=== PATIENT | female | born 1975 | race Caucasian/White ===

== ENCOUNTER → 2023-07-09 13:36 | Outpatient (REF) | payer BC, SELFPAY | LOC: WDC 13:36 | PROVIDERS: ATTENDING PHYSICIAN Obstetrics & Gynecology; FAMILY PHYSICIAN Family Medicine | DX: Z12.31 Encounter for screening mammogram for malignant neoplasm of breast (principal) | CPT/HCPCS: 77063; 77067 ==

== ENCOUNTER → 2024-07-25 13:22 | Outpatient (REF) | payer BC, SELFPAY | LOC: WDC 13:22 | PROVIDERS: ATTENDING PHYSICIAN Obstetrics & Gynecology; FAMILY PHYSICIAN Family Medicine | DX: Z12.31 Encounter for screening mammogram for malignant neoplasm of breast (principal) | CPT/HCPCS: 77063; 77067 ==

== ENCOUNTER → 2024-08-23 07:53 | Outpatient (REF) | payer BC, SELFPAY | LOC: HWRAD 07:53 | PROVIDERS: ATTENDING PHYSICIAN Internal Medicine | DX: N93.9 Abnormal uterine and vaginal bleeding, unspecified (principal) | CPT/HCPCS: 76830; 76856 ==

== ENCOUNTER 2024-09-27 18:55 | Emergency (ER) | payer BC, SELFPAY ==
[2024-09-27 19:05] VITALS: BP 130/79
[2024-09-27] MEDS: BENADRYL 25 MG IV (21:44)
[2024-09-27] MEDS: DECADRON 10 MG IV (21:45)
[2024-09-27] MEDS: NSS 500 IV (21:45)
[2024-09-27] MEDS: PEPCID 20 MG IV (21:45)
[2024-09-27 22:47] VITALS: BP 91/52
--- NOTE | 2024-09-27 22:54 | ED.GENMED ---
History of Present Illness
General
Chief Complaint: Skin Problem
Source: patient
Exam Limitations: none
Time Seen by Provider: 09/27/24 21:05
Nursing documentation reviewed up to this point in time: agreed with
History of Present Illness
History of Present Illness:
Patient presents to ED secondary to worsening itchy rash, after taking Bactrim for 2 weeks. Denies lip swelling, tongue swelling, or throat swelling sensation. Denies shortness of breath. Denies nausea or vomiting. Denies previous history of
similar symptoms. [place], where she was prescribed prednisone 2 days ago, without improving symptoms. Denies fever or chills.
Past History
Past History
ED Past Medical History: None
ED Past Surgical History:
Social History
Tobacco: Non-smoker
Alcohol: Occasional
Drug: None
Personal:
Living: with family
Employment: Employed
Family History
Family History: Other (Noncontributory)
Review of Systems
Review of Systems
Allergies reviewed?: Yes
All Other Systems: ROS reviewed and negative except as documented in HPI and ROS
Constitutional: Reports no symptoms
EENT: Reports no symptoms
Respiratory: Reports no symptoms; Denies trouble breathing
Cardiac: Reports no symptoms
ABD/GI: Reports no symptoms; Denies nausea or vomiting
Musculoskeletal: Reports no symptoms
Skin: Reports itching and rash
Neurological: Reports no symptoms; Denies dizzy or headache
Phy Exam
Physical Exam
Physical Exam:
Physical Exam
General: no apparent distress, not acutely ill. afebrile
Head: nc/at. eomi
Neck: supple. no meningeal signs. normal posterior pharynx.
Heart: s1/s2 regular rate and rhythm
Lungs: no acute respiratory distress. clear bilaterally
Abdomen: normal bowel sounds. not tender.
Neuro: alert and oriented x 3. no focal neurological deficits
Skin: macular rash noted over UE/LE/abdomen/back, sparing face
Psychiatric: well kept. interactive and cooperative
Extremities: no edema. no calf tenderness.
Course
Orders/Labs/Results
Orders:
Orders
09/27/24 21:31
0.9% Sodium Chloride 500 ml [Nss] 500 ml IV BOLUS
Dexamethasone Sod Phosphate [Decadron] 10 mg IV NOW STA
Diphenhydramine [Benadryl] 25 mg IV NOW STA
Famotidine [Pepcid] 20 mg IV NOW STA
Vital Signs
Initial and Last Documented VS:
Initial Vital Signs
Temp Pulse Resp BP Pulse Ox
97.6 F 71 16 130/79 100
09/27/24 19:05 09/27/24 19:05 09/27/24 19:05 09/27/24 19:05 09/27/24 19:05
Last Documented Vital Signs
Temp Pulse Resp BP Pulse Ox
97.6 F 57 18 91/52 100
09/27/24 19:05 09/27/24 22:47 09/27/24 22:47 09/27/24 22:47 09/27/24 22:55
MDM/Problems Addressed
MDM/Problems Addressed:
History and exam consistent with likely allergic reaction to Bactrim. Patient treated symptomatically with IV Decadron and Benadryl, along with IV fluids, with mild improvement in symptoms. Patient otherwise remains afebrile, hemodynamically
stable, and without any acute respiratory distress. As such, decision made to discharge patient home with taper dose of prednisone, along with use of Benadryl for symptomatic relief, as well as PCP follow-up. Patient advised to return to ED with
worsening symptoms.
*Pulse Oximetry
SaO2: 100
Oxygen Mode of Delivery: Room air
Patient hypoxic: no
*Critical Care Note
Total Time (30-74mins, 75-104mins- exclusive of procedures): Not Applicable
ED Attending Note
-
Portions of this chart may have been created with voice recognition software.� Occasional wrong word or��sound alike� substitutions may have occurred due to the inherent limitations of voice recognition software.
Discharge Plan
Departure
Patient Disposition: Home (Routine Discharge)
Date of Disposition: 09/27/24
Time of Disposition: 22:55
Patient with high blood pressure during this ER visit?: Yes
Discharge Problem:
Allergic reaction
Instructions: Allergic reaction - ED discharge instructions
Prescriptions:
New
prednisone 10 mg tablet
10 mg PO DAILY Qty: 30 0RF
Rx Instructions:
Day 1-2: 50mg po daily
Day 3-4: 40mg po daily
Day 5-6: 30mg po daily
Day 7-8: 20mg po daily
Day 9-10: 10mg po daily
No Action
multivitamin [Multi-Day] 1 EACH tablet
1 ea PO Daily
calcium carbonate 500 MG tablet,chewable
500 mg PO Daily
L.acidoph,paracasei,B.animalis 1 EACH capsule
1 ea PO Daily
ibuprofen 600 MG tablet
600 mg PO Q6 Qty: 20 0RF
amoxicillin-pot clavulanate 875-125 mg tablet
1 tab PO BID Qty: 14 0RF
oxycodone 5 mg tablet
5 mg PO Q4H PRN (Reason: Pain) Qty: 20 0RF
ondansetron 8 mg tablet,disintegrating
8 mg PO TID PRN (Reason: nausea and vomiting) Qty: 30 0RF
Referrals:
Armida Ye MD [Family Provider, Internal Medicine]
Activity Restrictions/Additional Instructions:
As discussed, please follow-up with your primary care physician for reevaluation, or return to ED with worsening symptoms. Your prescription has been sent electronically to [facility]
Interventions
Interventions:
*Risk Screen - Suicide Last Done: 09/27/24 19:05
*General Assessment Last Done: 09/27/24 22:23
*Neglect/Abuse Screening Last Done: 09/27/24 19:05
*ED- Fall Risk Assessment Last Done: 09/27/24 22:24
*Nursing Disposition Last Done: 09/27/24 23:08
ED-Skin Assessment Last Done: 09/27/24 21:03
Discharge Date and Time
Discharge Date/Time: 09/27/24 23:08
Print Language: KINYARWANDA
== END 2024-09-27 23:08 | disposition home or self-care (01) ==
LOC: EMR 18:55
PROVIDERS: EMERGENCY PHYSICIAN Emergency Medicine; FAMILY PHYSICIAN Internal Medicine
DX: T78.40XA Allergy, unspecified, initial encounter (principal); Y92.9 Unspecified place or not applicable
CPT/HCPCS: 99282; 96374; 96375; 96361

== ENCOUNTER 2024-10-01 11:36 | Inpatient (IN) | payer BC, SELFPAY ==
[2024-10-01] VITALS (12 sets, daily range): BP systolic 107–144; BP diastolic 54–83; BMI 23.8; BMI 24.0
--- NOTE | 2024-10-01 07:25 | ED.GENMED ---
History of Present Illness
<Radha Montes De Oca PA-C - Last Filed: 10/01/24 09:43>
General
Chief Complaint: Allergic Reaction
Source: patient and records
Exam Limitations: none
Time Seen by Provider: 10/01/24 07:10
History of Present Illness
History of Present Illness:
49yoF with a history of seasonal allergies and GERD presenting for evaluation of an allergic reaction. Patient was prescribed a 3 week course of Bactrim for a resistant sinus infection by ENT earlier this month. About 2 weeks ago, she started to
develop a mild rash which she did not think much of. She was at the beach last week and started to notice a worsening rash 8 days ago with severe itching. Patient stopped taking Bactrim with 1-2 days left of her treatment. She went to urgent care
1 week ago and was started on prednisone. She had no improvement and was seen in the ED on 09/27/24. Patient received IV Decadron, Benadryl, and Pepcid while in the ED and was discharged on a prednisone taper. She was feeling much better for the
first 2 days. Her rash recurred yesterday and she is now experiencing severe itching again. She woke up this morning with facial redness and some lip swelling so came to the ED. Her rash is worse on sun exposed areas. She denies any fevers,
vomiting, diarrhea, shortness of breath, genital involvement.
Past History
<Radha Montes De Oca PA-C - Last Filed: 10/01/24 09:43>
Past History
ED Past Medical History: None
ED Past Surgical History:
Social History
Tobacco: Non-smoker
Alcohol: Occasional
Drug: None
Personal:
Living: with family
Employment: Employed
Family History
Family History: Other (Noncontributory)
Phy Exam
<Radha Montes De Oca PA-C - Last Filed: 10/01/24 09:43>
General Physical Exam
General Presentation: well appearing and no apparent distress
General Skin: warm and dry
General Habitus: normal
General Mental: alert
ENT Exam
ENT Exam: pharynx normal, normocephalic and other (Mild lip swelling noted without crusting or blisters. No oral lesions noted. +Facial flushing.)
Eye Exam
Eye Exam: conjunctiva normal
Pulmonary Exam
Pulmonary Exam: lungs clear, no respiratory distress, no rales, no crackles, no rhonchi and no wheezing
Neurological Exam
Neurological Exam: alert
Eliana Coma Scale
Eye Opening: Spontaneous
Verbal Response: Oriented
Motor Response: Obeys Commands
GCS Total Score: 15
Skin Exam
Skin Exam: warm/dry, erythema and other (Morbilliform rash noted to exposed skin of upper/lower extremities and trunk. No skin sloughing or desquamation. )
Psychiatric Exam
Psychiatric Exam: normal mood/affect
<José Urias MD - Last Filed: 10/01/24 08:07>
Eliana Coma Scale
GCS Total Score: 15
Course
<Radha Montes De Oca PA-C - Last Filed: 10/01/24 09:43>
Orders/Labs/Results
Orders:
Orders
10/01/24 07:24
0.9% Sodium Chloride 1000 ml [Nss] 1,000 ml IV BOLUS
Diphenhydramine [Benadryl] 25 mg IV NOW STA
10/01/24 07:39
Complete Blood Count/With Diff Urgent
Comprehensive Metabolic Panel Urgent
HCG, Serum Qualitative Screen Urgent
10/01/24 08:03
Dexamethasone Sod Phosphate [Decadron] 8 mg IV NOW STA
10/01/24 08:37
US Abdomen Complete/Upper Urgent
Comment:
Reason For Exam: transaminitis
10/01/24 08:42
Add On- LAB Urgent
Tests Added?: qualitative HCG
10/01/24 09:02
Prothrombin Time Urgent
Abnormal Lab Results
10/01/24
07:39
Hct 35.0 L %
(37.0-47.0)
Abs Immat Gran (auto) 0.1 H 10^3/uL
(0-0.05)
Absolute Monos (auto) 0.7 H 10^3/uL
(0.1-0.6)
Immature Gran % 0.7 H %
(0-0.5)
Eosinophils % 7.5 H %
(0-6)
Chloride 108 H mmol/L
(98-107)
Glucose 100 H mg/dl
(70-99)
AST 367 H U/L
(14-36)
ALT 608 H* U/L
(0-35)
10/01/24 07:39
10/01/24 07:39
Vital Signs
Initial and Last Documented VS:
Initial Vital Signs
Temp Pulse Resp BP Pulse Ox
98.9 F 94 20 144/83 100
10/01/24 07:05 10/01/24 07:05 10/01/24 07:05 10/01/24 07:05 10/01/24 07:05
Last Documented Vital Signs
Temp Pulse Resp BP Pulse Ox
98.9 F 84 16 127/78 99
10/01/24 07:05 10/01/24 08:30 10/01/24 08:30 10/01/24 08:30 10/01/24 08:30
<José Urias MD - Last Filed: 10/01/24 08:07>
Orders/Labs/Results
Orders:
Orders
10/01/24 07:24
0.9% Sodium Chloride 1000 ml [Nss] 1,000 ml IV BOLUS
Diphenhydramine [Benadryl] 25 mg IV NOW STA
10/01/24 07:39
Complete Blood Count/With Diff Urgent
Comprehensive Metabolic Panel Urgent
HCG, Serum Qualitative Screen Urgent
10/01/24 08:03
Dexamethasone Sod Phosphate [Decadron] 8 mg IV NOW STA
10/01/24 08:37
US Abdomen Complete/Upper Urgent
Comment:
Reason For Exam: transaminitis
10/01/24 08:42
Add On- LAB Urgent
Tests Added?: qualitative HCG
10/01/24 09:02
Prothrombin Time Urgent
Abnormal Lab Results
10/01/24
07:39
Hct 35.0 L %
(37.0-47.0)
Abs Immat Gran (auto) 0.1 H 10^3/uL
(0-0.05)
Absolute Monos (auto) 0.7 H 10^3/uL
(0.1-0.6)
Immature Gran % 0.7 H %
(0-0.5)
Eosinophils % 7.5 H %
(0-6)
Chloride 108 H mmol/L
(98-107)
Glucose 100 H mg/dl
(70-99)
AST 367 H U/L
(14-36)
ALT 608 H* U/L
(0-35)
10/01/24 07:39
10/01/24 07:39
Vital Signs
Initial and Last Documented VS:
Initial Vital Signs
Temp Pulse Resp BP Pulse Ox
98.9 F 94 20 144/83 100
10/01/24 07:05 10/01/24 07:05 10/01/24 07:05 10/01/24 07:05 10/01/24 07:05
Last Documented Vital Signs
Temp Pulse Resp BP Pulse Ox
98.9 F 84 16 127/78 99
10/01/24 07:05 10/01/24 08:30 10/01/24 08:30 10/01/24 08:30 10/01/24 08:30
<Radha Montes De Oca PA-C - Last Filed: 10/01/24 09:43>
MDM/Problems Addressed
Differential Diagnosis Includes:
49yoF here with an allergic reaction. C/o itchy rash. Ongoing x 2 weeks. Recently stopped Bactrim which she was taking for almost 3 weeks. Currently on prednisone taper. Now with worsening rash and facial redness. VSS. She is well appearing and
non-toxic. There is facial flushing and mild lip swelling without blisters. Morbilliform rash to extremities without skin sloughing. Conjunctiva clear. Differential diagnosis includes but is not limited to: delayed hypersensitivity reaction, DRESS
syndrome, no clinical evidence of SJS
Initial ED plan: Check CBC and CMP. IV Benadryl, Decadron, and fluid bolus.
<Radha Montes De Oca PA-C - Last Filed: 10/01/24 09:43>
*Pulse Oximetry
SaO2: 100
Oxygen Mode of Delivery: Room air
Patient hypoxic: no (99%)
*Critical Care Note
Total Time (30-74mins, 75-104mins- exclusive of procedures): Not Applicable
<Radha Montes De Oca PA-C - Last Filed: 10/01/24 09:43>
Update Note
Update Note:
Labs show an eosinophilia of 7.5% as well as a transaminitis with AST of 367 and ALT 608. Renal function and platelet count normal. Patient meeting criteria for DRESS syndrome. I discussed case with Dr. Contreras, prepleater, as patient was seen by
azul JAIMES at his office two days ago. Dr. Contreras agrees with diagnosis of DRESS syndrome and recommends hospitalization. Patient admitted to the hospitalist service for further management.
ED Attending Note
<Radha Montes De Oca PA-C - Last Filed: 10/01/24 09:43>
-
Portions of this chart may have been created with voice recognition software.� Occasional wrong word or��sound alike� substitutions may have occurred due to the inherent limitations of voice recognition software.
<José Urias MD - Last Filed: 10/01/24 08:07>
ED Attending Note
Patient seen and examined by attending physician: Yes
I performed the substantive portion of visit, reviewed & personally made and approve the management plan that is documented in note by myself or TIFFANY.: Yes
ED Attending Note:
49-year-old female complaining of ongoing pruritic rash diffusely x 8 days. Patient had been on Bactrim for 2 weeks when the rash started. Continued 1/3-week of Bactrim. This was for sinus issues. Rash started on the arms is pruritic. Worse in
sun exposed areas. She had been on a course of prednisone. Seen here 5 days ago with Decadron and a steroid taper. Took 40 mg of prednisone yesterday. She feels the Decadron did help days ago. She noted some lip swelling and redness to her
cheeks today. No swallowing issues breathing issues chest pain shortness of breath. No unusual ulcerations to any mucous membranes including her mouth vaginal area eyes etc.
GENERAL: Alert and oriented in no apparent distress
EYE: Orbits normal. No conjunctival injection or mucous membrane ulcerations
ENT: Pharynx without erythema. No intraoral ulcerations
CARDIAC: Regular rate and rhythm without any obvious murmurs.
LUNGS: Clear breath sounds,normal
ABDOMEN: Soft, without focal tenderness or distention
NEUROLOGICAL: Alert and oriented , grossly non-focal
SKIN: Warm and dry, macular papular rash diffusely on the extremities abdomen and chest although relatively mild. Increased erythema to the proximal extremities. Erythema to the cheeks. Clear somewhat demarcated related to bathing suit although
it is in the areas under the bathing suit. No petechia or purpura.
MUSCULOSKELETAL: No edema,no deformity.Good color
PSYCH: Normal and appropriate interaction.
Impression drug reaction. Waxing and waning symptoms. Some worse facial symptoms this morning although no airway issues. Not describing respiratory or cardiac issues. Not toxic or septic appearing. No ulcerations. Considered Pimentel-El
syndrome but not consistent with exam. Dress syndrome. Workup in progress. Also tried to contact her prepleater. She clearly felt she responded well to the Decadron. Although unlikely to add significant benefit in extra dose is reasonable.
Discharge Plan
Departure
Patient Disposition: Admit
Date of Disposition: 10/01/24
Time of Disposition: 08:41
Presentation/result/management discussed w/ accepting MD/DO: Hospitalist
Discharge Problem:
DRESS syndrome
Prescriptions:
No Action
famotidine [Pepcid] 40 mg Tablet
40 mg PO DAILY
prednisone 10 mg tablet
10 mg PO DAILY
Rx Instructions:
Day 1-2: 50mg po daily
Day 3-4: 40mg po daily
Day 5-6: 30mg po daily
Day 7-8: 20mg po daily
Day 9-10: 10mg po daily
Referrals:
UNKNOWN - PT DOES,NOT KNOW [Family Provider]
Interventions
Interventions:
*Risk Screen - Suicide Last Done: 10/01/24 07:11
*General Assessment Last Done: 10/01/24 07:12
*Neglect/Abuse Screening Last Done: 10/01/24 07:11
*ED- Fall Risk Assessment Last Done: 10/01/24 07:12
*ED COVID-19 Vaccine History Last Done: 10/01/24 07:12
ED- Cardiac Assessment Last Done: 10/01/24 07:17
ED- Pulmonary Assessment Last Done: 10/01/24 07:17
ED-Skin Assessment Last Done: 10/01/24 07:17
Discharge Date and Time
Print Language: THAI
[2024-10-01] MEDS: BENADRYL 25 MG IV ×4 (07:42→23:45)
[2024-10-01] MEDS: NSS 1000 IV (07:42)
[2024-10-01 07:45] LABS: Hematocrit 35.0 % (37.0-47.0); Hemoglobin 12.2 g/dL (12.0-16.0); Mean Corp Hgb Conc. 34.9 g/dL (33.0-37.0); Mean Corpuscular Volume 83.1 fL (81.0-99.0); Nucleated Red Blood Cells % 0 %; Platelet Count 249 10^3/uL (130-400); Red Cell Dist. Width 13.4 % (11.5-14.5)
[2024-10-01] MEDS: DECADRON 8 MG IV ×4 (08:10→23:46)
[2024-10-01 08:19] LABS: ALT (SGPT) 608 U/L (0-35); AST (SGOT) 367 U/L (14-36); Albumin 3.9 g/dl (3.5-5.0); Alkaline Phosphatase 92 U/L (38-126); Blood Urea Nitrogen 8 mg/dl (7-17); Calcium 8.4 mg/dl (8.4-10.2); Carbon Dioxide 25 mmol/L (22-30); Chloride 108 mmol/L (98-107); Estimated Creatinine Clearance 69 ml/min; Glucose 100 mg/dl (70-99); Potassium 3.5 mmol/L (3.5-5.1); Sodium 140 mmol/L (135-145); Total Protein 6.5 g/dl (6.3-8.2); eGFR > 60.00
--- NOTE | 2024-10-01 08:27 | EDRN ---
Provider aware of critical value lab
[2024-10-01 09:13] LABS: HCG, Serum Qualitative Screen Negative
[2024-10-01 09:20] LABS: INR 0.95; PT 13.0 Sec (11.4-14.6)
--- NOTE | 2024-10-01 10:02 | HPS.HSE ---
Addendum entered and electronically signed by Jelena Espinoza MD 10/01/24 22:19:
Lower ext maculopapular rash
RUE Rash
LUE rash
Face neck rash
Original Note:
Family Physician
-
Family Physician: NOT KNOW UNKNOWN - PT DOES
Chief Complaint
-
Facial Rash
History of Present Illness
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 Patient was prescribed a 3 wk course of Bactrim for a resistant sinus infection by ENT earlier this
month, she was also traveling in [place] and [place] for the first 2 weeks (no hiking, no hostels). About 2 weeks ago, she started to develop a mild rash arms legs which she did not think much of- notes a hx of mild photosensitivity rxn to sun
exposure that usually resolves spontaneously when away from the sun. She was at the beach last week and started to notice a worsening rash with severe itching. Suspected drug rxn, patient stopped taking Bactrim with 1-2 days left of her treatment.
She went to urgent care and was started on prednisone. She had no improvement and was seen in the ED on 09/27/24. Patient received IV Decadron, Benadryl, and Pepcid while in the ED, with improvement noted, and was discharged on a prednisone
taper. Reported feeling better first 2 days since discharge. Her rash recurred and itching worsen. She woke up in the morning with facial redness and some lip swelling prompting return to ED. Denies fever chills nausea vomiting diarrhea
constipation dysuria chest/abd pain palpitations SOB wheezing. VSS on room air. Labs concerning for LFT elevations
Medical History
Past Medical History
Past Medical History: Reports Other (as above)
Past Surgical History: Reports Other (as above)
Social History
Tobacco: Non-smoker
Alcohol: None
Drug: None
Personal:
Living: With Family
Employment: Employed
Family History
Family History: Not pertinent (reviewed)
Allergies / Home Medications
Allergies reflects when Allergies were last updated in [employer] [employer].
Home Medications with original date entered in [employer]
Allergy/Medication List:
Allergies
Allergy/AdvReac Type Severity Reaction Status Date / Time
bacitracin Allergy Itching Verified 10/01/24 07:08
sulfamethoxazole (From Allergy Rash Verified 10/01/24 07:08
Bactrim)
trimethoprim (From Bactrim) Allergy Rash Verified 10/01/24 07:08
Home Medications
famotidine 40 mg tablet (Pepcid) 40 mg PO DAILY 10/01/24
prednisone 10 mg tablet 10 mg PO DAILY 10/01/24
Review of Systems
-
A 12 point ROS was completed and negative except as noted: Yes
Constitutional: Reports Other (as below)
Physical Exam
Vital Signs
Vital Signs
Temp Pulse Resp BP Pulse Ox
98.9 F 85 16 115/75 100
10/01/24 07:05 10/01/24 09:45 10/01/24 09:45 10/01/24 09:45 10/01/24 09:45
Physical Exam
General: Other (as below)
Laboratory Results
-
10/01/24 07:39
10/01/24 07:39
Laboratory Results
PT 13.0 Sec (11.4-14.6) 10/01/24 09:02
INR 0.95 10/01/24 09:02
Total Bilirubin 0.7 mg/dl (0.2-1.3) 10/01/24 07:39
AST 367 U/L (14-36) H 10/01/24 07:39
ALT 608 U/L (0-35) H* 10/01/24 07:39
Alkaline Phosphatase 92 U/L (38-126) 10/01/24 07:39
Impression/Plan
-
ROS
General: Denies fever chills night sweats unexpected weight loss
Neuro: Denies seizure shaking loss of consciousness dizziness vertigo
Psych: denies depression hallucinations confusion manic episodes
Endocrine: Denies polyuria polydipsia polyphagia heat/cold intolerance
HEENT: Denies blindness visual disturbances epistaxis
Pulmonary: denies coughing hemoptysis sneezing sob dyspnea on exertion
Cardiovascular: denies chest pain palpitations leg swelling
Hematology: denies signs symptoms of anemia easy bruising/bleeding
Gastrointestinal: denies nausea vomiting diarrhea constipation hematemesis hematochezia melena
Genito-Urinary: denies retention incontinence dysuria
Musculoskeletal: denies joint pain weakness
Dermatology: Progressive rash itching involving face throat, chest, arms and legs, arms and legs.
Physical Exam
General: No pallor, cyanosis, or jaundice.
HEENT: Throat clear. PERRLA Normocephalic atraumatic
NECK: Supple. No JVD Carotid Bruits
RESPIRATORY: Lungs clear to auscultation. No crackles wheezes stridor
CVS: S1, S2 normal. RRR. No murmur, rub or gallop.
ABDOMEN: Soft, non-tender. No distension. BS+/normal.
EXTREMITIES: No peripheral cyanosis or edema.
Derm: Diffuse rash involving face, maculopapular rash neck chest arms and legs
DISABILITY HEARING OFFICER: AOx3. No focal deficits.
IMPRESSION:
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 Patient was prescribed a 3 wk course of Bactrim for a resistant sinus infection by ENT earlier this
month, she was also traveling in [place] for the first 2 weeks (no hiking, no hostels). About 2 weeks ago, she started to develop a mild rash arms legs which she did not think much of- notes a hx of mild photosensitivity rxn to sun
exposure that usually resolves spontaneously when away from the sun. She was at the beach last week and started to notice a worsening rash with severe itching. Suspected drug rxn, patient stopped taking Bactrim with 1-2 days left of her treatment.
She went to urgent care and was started on prednisone. She had no improvement and was seen in the ED on 09/27/24. Patient received IV Decadron, Benadryl, and Pepcid while in the ED, with improvement noted, and was discharged on a prednisone
taper. Reported feeling better first 2 days since discharge. Her rash recurred and itching worsen. She woke up in the morning with facial redness and some lip swelling prompting return to ED. Denies fever chills nausea vomiting diarrhea
constipation dysuria chest/abd pain palpitations SOB wheezing. VSS on room air. Labs concerning for LFT elevations
PLAN:
#Suspected DRESS secondary to Bactrim, eosinophil count 700
#Acute Liver injury 2/2 DRESS AST 367 ALT 608
IMU admit for closer monitoring concern progressive symptoms despite steroids Benadryl
Vital signs otherwise stable on room air
Received IV Decadron 8 mg and 25 mg Benadryl in ED
IV Decadron 4 mg every 6
IV Benadryl 25 mg every 6 with holding parameters for sedation
IV Pepcid 20 mg BID
Calamine Lotion prn itching
Daily CBC differential and CMP
Abd US appreciated no acute abn's, coag wnl
GI eval
ID eval possible alternative infection, hx travel
DVT ppx SCD
GI ppx Famotidine
Full Code
Discussed with patient and patient's Sen
I spent a total of 80 minutes with the patient or on the floor. More than 50% of this time involved counseling and coordination of care.
[2024-10-01] MEDS: PEPCID 20 MG IV ×2 (11:51→22:26)
--- NOTE | 2024-10-01 12:15 | CM ---
Met with patient and at bedside in ED
Pharmacy verified: [facility] @ [address] [facility]
Family Physician verified: Armida Ye MD @ [address] [place] [address] [address], [place] [address];
Patient lives w/ and 2 children ages 13 and 15; multilevel home; 1 step to enter; 12 steps between floors, powder room 1st floor; 2nd floor full bath has stall shower
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
No SNF or Home Health utilization history
will transport home
Plan: Discharge to home when medically stable; no needs anticipated
[2024-10-01 13:59] LABS: ALT (SGPT) 742 U/L (0-35); AST (SGOT) 474 U/L (14-36); Albumin 4.2 g/dl (3.5-5.0); Alkaline Phosphatase 111 U/L (38-126); Blood Urea Nitrogen 7 mg/dl (7-17); Calcium 8.8 mg/dl (8.4-10.2); Carbon Dioxide 25 mmol/L (22-30); Chloride 111 mmol/L (98-107); Estimated Creatinine Clearance 92 ml/min; Glucose 131 mg/dl (70-99); Potassium 4.1 mmol/L (3.5-5.1); Sodium 141 mmol/L (135-145); Total Protein 7.0 g/dl (6.3-8.2); eGFR > 60.00
--- NOTE | 2024-10-01 14:10 | CON.ID ---
Consultation
-
Date/Time Consultation Requested: 10/01/2024 1201
Date/Time Consultation Performed: 10/01/2024 1345
Requesting Provider: Dr. Espinoza
Performing Provider: Dr. Bee
Reason for Consultation: Rash
Chief Complaint / Past History
History of Present Illness
Kari Garcia is a 49-year-old female being evaluated at the request of Dr. Espinoza in regards to body rash. History is obtained from chart review, along with patient interview.
The patient has a significant past medical history only for GERD and rosacea. She reports that around she developed a sinus infection. She initially was on approximately 5 days of Augmentin without significant improvement, and then
subsequently switched to Levaquin, which also failed to give relief. Ultimately she saw ENT and was placed on a 3-week course of Bactrim. Approximately 2 weeks into her course of Bactrim she moved to [place] and was there for 2 days, at which point
in time she developed a slight rash on her arms. She has had other instances of mild rash on her arms but this time the rash was more pruritic and did not resolve. She subsequently traveled to [facility] where the rash progressed to include her legs
and abdomen. She was seen at an urgent care center there and prescribed prednisone which failed to improve the rash. She ultimately returned to the and came to the emergency room for further care. She was seen here on 09/27 and given Decadron
and discharged on prednisone. Earlier today, she noted an increase in the rash and presented back to the emergency room for further evaluation.
While traveling, she had no significant insect exposure. She recalls no bites.
Past History
Additional Past Medical History:
GERD
Hx diverticulitis
Hx rosacea
Additional Past Surgical History:
Basal cell ca
Allergy History:
bacitracin Allergy (Verified 10/01/24 07:08)
Itching
sulfamethoxazole (From Bactrim) Allergy (Verified 10/01/24 07:08)
Rash
trimethoprim (From Bactrim) Allergy (Verified 10/01/24 07:08)
Rash
Medications Reviewed: Yes
Current Antibiotics:
None
Social History
Tobacco: Non-Smoker
Alcohol: None
Drug: None
Personal:
Living: With Family
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
Family History
Family History: Not Pertinent
Review of Systems
Vital Signs
Temp Pulse Resp BP Pulse Ox
98.7 F 84 14 112/74 100
10/01/24 13:11 10/01/24 12:00 10/01/24 12:00 10/01/24 11:30 10/01/24 12:00
Physical Exam
Physical Exam
Constitutional: No Acute Distress, Comfortable and Non-toxic
Eyes: No Conjunctival Hemorrhage and Sclera Anicteric
Oral: No Thrush and No Ulcers
Cardiovascular: Regular Rate and S1/S2; Negative S3/S4
Pulmonary: Clear; Negative Wheezes, Rales or Rhonchi
Gastrointestinal: Soft, Non Tender, Non Distended, Normal Bowel Sounds, No Rebound and No Guarding
Genito-Urinary: Negative Damon
Extremities: Negative Edema, Cyanosis or Erythema
Skin: Rash (Macular rash noted on the face (cheeks), arms, legs. Rash not seen on back. No significant rash on abdomen.)
Neurological: Awake and Alert
Psychological: Calm
Lab / Diagnostic Study Results
10/01/24 07:39
10/01/24 13:34
Abs Immat Gran (auto) 0.1 10^3/uL (0-0.05) H 10/01/24 07:39
Absolute Neuts (auto) 4.7 10^3/uL (1.4-6.5) 10/01/24 07:39
Absolute Lymphs (auto) 2.8 10^3/uL (1.2-3.4) 10/01/24 07:39
Absolute Monos (auto) 0.7 10^3/uL (0.1-0.6) H 10/01/24 07:39
Absolute Basos (auto) 0.1 10^3/uL (0-0.2) 10/01/24 07:39
Immature Gran % 0.7 % (0-0.5) H 10/01/24 07:39
Neutrophils % 52.4 % (42.2-75.2) 10/01/24 07:39
Lymphocytes % 30.5 % (20.5-51.1) 10/01/24 07:39
Monocytes % 8.1 % (1.7-9.3) 10/01/24 07:39
Eosinophils % 7.5 % (0-6) H 10/01/24 07:39
Basophils % 0.8 % (0-2) 10/01/24 07:39
PT 13.0 Sec (11.4-14.6) 10/01/24 09:02
INR 0.95 10/01/24 09:02
Assessment / Plan
Drug reaction / Suspected DRESS.
Transaminitis
GERD
Hx diverticulitis
Hx rosacea
Recommendations:
At present, no evidence of infectious etiology.
Observe off antibiotics.
Trend LFTs.
Follow for rash improvement.
Care Review
Plan reviewed with: Physician (Hospitalist)
--- NOTE | 2024-10-01 14:16 | CON.GI ---
Consultation
-
Date/Time Consultation Requested: 10/01/2024
Date/Time Consultation Performed: 10/01/2024
Requesting Provider: Dr. Espinoza
Performing Provider: Dr. Armendariz
Reason for Consultation: DRESS and hepatocellular injury
Medical History
Chief Complaint / HPI
History of Present Illness:
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 She was prescribed a 3-week course of Bactrim for a
resistant sinus infection earlier this month then 1 week later started to develop a mild rash on her arms and legs. She thought it was just possibly from sun exposure but she was traveling recently in [place] and [place]. She has had photosensitivity
rashes in the past. [place] the [place] and noticed the rash worsening with severe itching. She suspected drug reaction and stopped the Bactrim with roughly 1 to 2 days left of her treatment. She went to urgent care in [facility] and was
started on prednisone. She had no improvement and went to the emergency room the day she got back to the [facility] on 09/27/2024 and received IV Decadron, Benadryl and Pepcid. She had some improvement and was discharged on a prednisone taper. However
her rash recurred and pruritus worsened. Unfortunately, today 10/01/2024 she woke up with facial redness and some lip swelling and returned to the emergency room.
She denies any chest pain palpitations shortness of breath or wheezing. No fever throughout this entire episode. She has no GI symptoms although soon after the start of Bactrim she had few days of nausea requiring Zofran. That since resolved and
currently has no nausea vomiting diarrhea constipation. Her vital signs are stable on room air.
In the emergency room her labs showed an eosinophil count of 700 with hepatocellular injury with ALT of 608, AST of 367, total bilirubin of 0.6, alkaline phosphatase of 111. Normal kidney function BUN. Albumin 4.2, INR 0.5, normal platelets 249.
Last liver enzymes were checked in 10/2023 and were normal
Ultrasound also done and was normal
No significant Tylenol use. No significant alcohol use. No family history of liver disease
Past Medical History
Past Medical History: Other (Basal cell on the left cheek, chronic seasonal allergies, allergic urticaria, rosacea, GERD, prior diverticulitis 2022)
Past Surgical History: Other ()
Social History
Tobacco: Non-Smoker
Alcohol: None
Drug: None
Personal:
Living: With Family
Employment: Employed
Family History
Family History: Other (No significant history)
Allergies / Home Medications
Allergy/AdvReac Type Severity Reaction Status Date / Time
bacitracin Allergy Itching Verified 10/01/24 07:08
sulfamethoxazole (From Allergy Rash Verified 10/01/24 07:08
Bactrim)
trimethoprim (From Bactrim) Allergy Rash Verified 10/01/24 07:08
�Medication �Instructions �Recorded
Lactobac no.2-Bifidobac no.1-S. 1 cap PO DAILY 10/01/24
thermo 112.5 billion cell capsule
(Visbiome)
cetirizine 10 mg tablet (Zyrtec) 10 mg PO DAILY 10/01/24
diphenhydramine HCl 25 mg capsule 25 mg PO DAILYPRN PRN allergies 10/01/24
(Benadryl)
drospirenone 3 mg-estetrol 14.2 mg 0 tab PO .COMPLEX 10/01/24
(28) tablet (Nextstellis)
famotidine 40 mg tablet (Pepcid) 40 mg PO HS 10/01/24
fluticasone propionate 50 1 spray intranasal DAILY 10/01/24
mcg/actuation nasal
spray,suspension
guar gum 1 packet PO TID 10/01/24
prednisone 10 mg tablet 10 mg PO DIRECTED 10/01/24
therapeutic multivitamin 1 tab PO DAILY 10/01/24
Review of Systems
-
History Source: Patient
All other systems: A 12 pt ROS was Negative except as stated above in HPI
Vital Signs
Temp Pulse Resp BP Pulse Ox
98.7 F 84 14 112/74 100
10/01/24 13:11 10/01/24 12:00 10/01/24 12:00 10/01/24 11:30 10/01/24 12:00
Physical Exam
Exam
General: Well Developed and Well Nourished
HEENT: Anicteric
Respiratory: Clear
Cardiac: S1/S2
GI: Soft, Non Tender, Non Distended and Normal Bowel Sounds
Skin: Rash (Morbilliform rash. None on the abdomen or upper legs -patient said it was there earlier)
Neuro: AO x 3
Psych: Calm
Results
WBC 9.0 10^3/uL (4.8-10.8) 10/01/24 07:39
Hgb 12.2 g/dL (12.0-16.0) 10/01/24 07:39
Hct 35.0 % (37.0-47.0) L 10/01/24 07:39
MCV 83.1 fL (81.0-99.0) 10/01/24 07:39
Plt Count 249 10^3/uL (130-400) 10/01/24 07:39
Absolute Neuts (auto) 4.7 10^3/uL (1.4-6.5) 10/01/24 07:39
PT 13.0 Sec (11.4-14.6) 10/01/24 09:02
INR 0.95 10/01/24 09:02
Sodium 141 mmol/L (135-145) 10/01/24 13:34
Potassium 4.1 mmol/L (3.5-5.1) 10/01/24 13:34
Chloride 111 mmol/L (98-107) H 10/01/24 13:34
Carbon Dioxide 25 mmol/L (22-30) 10/01/24 13:34
BUN 7 mg/dl (7-17) 10/01/24 13:34
Creatinine 0.6 mg/dL (0.6-1.0) 10/01/24 13:34
Calcium 8.8 mg/dl (8.4-10.2) 10/01/24 13:34
Total Bilirubin 0.6 mg/dl (0.2-1.3) 10/01/24 13:34
AST 474 U/L (14-36) H 10/01/24 13:34
ALT 742 U/L (0-35) H* 10/01/24 13:34
Alkaline Phosphatase 111 U/L (38-126) 10/01/24 13:34
Diagnostic Image Results:
Prior GI Procedures:
EGD: Dr. Dias 10/2022 GERD, normal esophagus, gastric erythema without H pylori
Colonoscopy: Dr. Dias 10/2022 screening, TI erosion, bx benign. random colon bx benigh, TC-SSP removed, rectum benign polyps removed, rpt in 7 yrs
Assessment / Plan
-
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
to the IMU and hospitalist suspects DRESS syndrome. GI consulted for significant hepatocellular injury with normal INR and bilirubin
10/01/2024 abdominal ultrasound normal-sized liver 16.8 cm, homogeneous normal hepatic echotexture with no lesion, normal bile ducts, gallbladder is normal
# Acute hepatocellular hepatitis/hepatocellular injury - DILI vs DRESS - ALT 700s, normal bili and normal INR.
If this is DRESS - The liver is most frequently affected and can be associated with viral reactivation especially HHV-6, [place]ens and cytomegalovirus
-- Bactrim drug-induced liver injury can be severe and progressed to acute liver failure and is often a hypersensitivity reaction and can occur with drug rash eosinophilia, fever
- Monitor daily MELD labs including INR
-- Bactrim induced liver injury varies greatly in severity. It can be mild with self-limited liver enzyme elevations, to acute symptomatic hepatitis to prolong cholestatic syndrome, to acute liver failure. Full recovery usually within 2 to 8 weeks.
-- check hepatitis panel, EBV, CMV
#DRESS syndrome -is a severe cutaneous adverse reaction with rash, fever, organ involvement potentially of the liver, lung and or kidney after prolonged exposure to medication. Bactrim is 1 of those medications which she was on it for roughly 3
weeks. Timing fits since it often occurs weeks after the drug.
-- Bactrim has been stopped, supportive care, systemic glucocorticoids
-- Dermatology consult would be ideal; biopsy?
Data Reviewed
-
Ultrasound: Report Reviewed by me
Old Records: Reviewed
-
-
Thank you for consultation and allowing me to participate in the patient's care. Please call the food and beverage controller GI physician during the after hours with any questions or concerns.
--- NOTE | 2024-10-01 14:36 | PTCARENOTE ---
Received patient on admission from ED via stretcher. [place], flat, raised rash noted scattered b/l legs, arms and chest. Patient denies pain or itching. Chemistry repeated as ordered, results at 13:34: ALT increased to 742 and AST increased to 4747;
Dr Espinoza made aware via TT. Repeat labs in for the morning.
--- NOTE | 2024-10-01 15:44 | CON.PUL ---
Consultation
Consultation Request
Date/Time Consultation Requested: 10/01/2024 - 1207
Date/Time Consultation Performed: 10/01/2024 - 1436
Requesting Provider: Dr. Espinoza
Performing Provider: Dr. Sagastume
Reason for Consultation: DRESS syndrome
Medical History
-
Chief Complaint: Worsening lip swelling + eye puffiness/worsening rash
History of Present Illness:
49-year-old female with a past medical history of left shoulder impingement syndrome, seasonal allergies, allergic urticaria, GERD, rosacea, and history of left cheek basal cell carcinoma s/p Mohs procedure who presents with worsening lip swelling +
eye puffiness/worsening rash. Patient had been diagnosed with maxillary sinusitis in late August and had seen ENT. She was given a 3-week course of Bactrim as she had persistent sinusitis despite 5 days of Augmentin + few days of Levaquin. About 2
weeks after starting Bactrim she developed a rash on her arms and ankles which was minor. She did arrive in [facility] and travel to [place] on 09/16 with friends for a girls trip. About 6 days after her rash initially started on 09/23, she traveled from
[facility] to [facility] and her rash markedly worsened in the sun-exposed regions except her face. Her rash became increasingly itchy, confluent, and persisted despite trying triamcinolone steroid cream + Zyrtec. She went to an urgent care in [facility] on
Wednesday (09/25), and she was treated with 60 mg of prednisone with a taper and this seemed to hold her over for the night however the next day on 09/26 the rash was spreading and she went to urgent care again in [facility]. They recommended her to see
dermatology but the patient then came back to [facility]. On 09/27 she came here to the ER and was given 10 mg Decadron, 25 mg Benadryl and Pepcid 20 mg, all IV. She felt much improved, and continue to take prednisone taper which was prescribed
by the ER. Yesterday (09/30), she started to have lip swelling and eye puffiness although it was subtle and her arms were getting more itchy where the rash was located. This morning her face became increasingly more red with rash appearing on her
hands and lip swelling worsened so she decided to come back to the hospital. In the ER she was afebrile with pulse rate 94, respiratory rate 20, BP 144/83 and saturating 100 % on room air. Labs pertinent for absolute eosinophil count of 700,
elevated LFTs with AST 367, ALT 608 and beta-hCG negative. In the ER she was given 8 mg IV Decadron, 25 mg of Benadryl and 1 L NS 0.9%. She was admitted to the IMU for closer monitoring and pulmonary services consulted for additional
management/recommendations.
When I saw the patient, she was resting in bed with her at bedside. Current heart rate 82, BP 110/72 and she is saturating 98% on room air. She feels well currently, still with the rash on her body + face, which is warm to touch and itchy.
She is receiving Decadron and finds that this helps greatly. She currently denies chest pain, SOB, RM, abdominal pain, nausea, vomiting, diarrhea, fevers or chills.
PMHx: Left cheek basal cell carcinoma s/p Mohs (2006), left shoulder impingement syndrome, seasonal allergies, allergic urticaria, GERD, rosacea, history of hemorrhoids
PSHx: (2010), left cheek Mohs procedure, D&C (first TM miscarriage � 2007)
Past Medical History
Past Medical History: Other (Above as per HPI)
Past Surgical History: Other (Above as per HPI)
Social History
Tobacco: Non-smoker
Alcohol: None
Drug: None
Personal:
Living: With Family (: Sen)
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
Family History
Family History: Other (Father: Hypothyroidism; paternal grandfather: Parkinson disease; paternal grandmother: Thyroid disease; maternal grandfather: AAA; brother: GERD)
Allergies / Home Medications
Allergies
Allergy/AdvReac Type Severity Reaction Status Date / Time
bacitracin Allergy Itching Verified 10/01/24 07:08
sulfamethoxazole (From Allergy Rash Verified 10/01/24 07:08
Bactrim)
trimethoprim (From Bactrim) Allergy Rash Verified 10/01/24 07:08
Home Medications
�Medication �Instructions �Recorded �Confirmed �Last Taken �Type
Lactobac no.2-Bifidobac no.1-S. 1 cap PO DAILY 10/01/24 10/01/24 09/30/24 History
thermo 112.5 billion cell capsule
(Visbiome)
cetirizine 10 mg tablet (Zyrtec) 10 mg PO DAILY 10/01/24 10/01/24 09/30/24 History
diphenhydramine HCl 25 mg capsule 25 mg PO DAILYPRN PRN allergies 10/01/24 10/01/24 10/01/24 History
(Benadryl)
drospirenone 3 mg-estetrol 14.2 mg 0 tab PO .COMPLEX 10/01/24 10/01/24 09/30/24 History
(28) tablet (Nextstellis)
famotidine 40 mg tablet (Pepcid) 40 mg PO HS 10/01/24 10/01/24 09/30/24 History
fluticasone propionate 50 1 spray intranasal DAILY 10/01/24 10/01/24 09/30/24 History
mcg/actuation nasal
spray,suspension
guar gum 1 packet PO TID 10/01/24 10/01/24 09/30/24 History
prednisone 10 mg tablet 10 mg PO DIRECTED 10/01/24 10/01/24 09/30/24 History
40 mg
therapeutic multivitamin 1 tab PO DAILY 10/01/24 10/01/24 09/30/24 History
Review of Systems
-
History Source: Patient
All other systems: Negative unless noted
Vitals / Labs / Diagnostic Testing
Vital Signs
Temp Pulse Resp BP Pulse Ox
98.0 F 84 16 107/82 97
10/01/24 16:50 10/01/24 16:28 10/01/24 16:28 10/01/24 16:28 10/01/24 16:00
Lab Data
10/01/24 07:39
10/01/24 13:34
Laboratory Results
10/01/24
09:02
PT 13.0
INR 0.95
Diagnostic Testing:
Physical Exam
-
HEENT: Normocephalic, Anicteric and Moist Mucous Membranes
Cardiovascular: S1/S2 and Peripheral Edema (negative)
Respiratory: Clear, Wheeze (negative), Rales (negative), Rhonchi (negative), Non-Labored Respirations and Other (No stridor appreciated)
GI: Soft, Non Distended and Non Tender
Neurology: AO x 3 and Tremors (negative)
Skin: Warm, Dry and Other (Diffuse macular papular erythematous rash which is blanchable and warm to touch, especially on her face)
General: Respiratory Distress (negative), Comfortable, Chills (negative) and Sweats (negative)
Assessment
-
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
lip swelling + eye puffiness/worsening rash. Patient had been diagnosed with maxillary sinusitis in late August and had seen ENT. She was given a 3-week course of Bactrim as she had persistent sinusitis despite 5 days of Augmentin + few days of
Levaquin. About 2 weeks after starting Bactrim she developed a rash on her arms and ankles which was minor. She did arrive in [facility] and travel to [place] on 09/16 with friends for a girls trip. About 6 days after her rash initially started on 09/23,
she traveled from [place] to [place] and her rash markedly worsened in the sun-exposed regions except her face. Her rash became increasingly itchy, confluent, and persisted despite trying triamcinolone steroid cream + Zyrtec. She went to an urgent
care in [place] on Wednesday (09/25), and she was treated with 60 mg of prednisone with a taper and this seemed to hold her over for the night however the next day on 09/26 the rash was spreading and she went to urgent care again in [place]. They
recommended her to see dermatology but the patient then came back to [facility]. On 09/27 she came here to the ER and was given 10 mg Decadron, 25 mg Benadryl and Pepcid 20 mg, all IV. She felt much improved, and continue to take prednisone
taper which was prescribed by the ER. Yesterday (09/30), she started to have lip swelling and eye puffiness although it was subtle and her arms were getting more itchy where the rash was located. This morning her face became increasingly more red
with rash appearing on her hands and lip swelling worsened so she decided to come back to the hospital. In the ER she was afebrile with pulse rate 94, respiratory rate 20, BP 144/83 and saturating 100 % on room air. Labs pertinent for absolute
eosinophil count of 700, elevated LFTs with AST 367, ALT 608 and beta-hCG negative. In the ER she was given 8 mg IV Decadron, 25 mg of Benadryl and 1 L NS 0.9%. She was admitted to the IMU for closer monitoring and pulmonary services consulted for
additional management/recommendations.
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
Impression:
#Facial rash with suspected DRESS
#Elevated eosinophils due to suspected DRESS
#Transaminitis likely due to above (DRESS syndrome)
#Facial edema (seen in majority of cases of DRESS)
#History of maxillary sinusitis treated with Bactrim
#History of seasonal allergies + allergic urticaria
#History of rosacea
#History of GERD
Plan:
- Clinically, patient has DRESS syndrome likely due to Bactrim prescribed on 09/04/2024 given to her to treat persistent maxillary sinusitis
- Main treatment at this point is supportive care while avoiding the medication that caused this reaction, in this case Bactrim
- She has moderate severity DRESS, and agree with giving systemic corticosteroid
- She is currently on Decadron 8 mg IV q6hr, in addition to Zyrtec, Pepcid 20 mg IV q12hr and Benadryl 25 mg IV q6hr
- Unclear the benefit that Pepcid and Benadryl have as this is a T-cell mediated hypersensitivity reaction and not a histamine induced reaction; although these may help with the pruritus
- She will need a prolonged taper of steroids over the next 3 months
- Continue to trend LFTs, as liver injury is the most common visceral manifestation of DRESS
- GI has been consulted - recs appreciated
- Would recommend continued follow-up with her PCP vs Allergy/Lawn Care Technician as she could develop autoimmune sequela
- Given that she does not have severe DRESS, she should do well with cessation of sulfonamides and slow taper of steroids; if symptoms worsen then could consider skin biopsy + IVIG vs antiviral medications as HHV-6/7+ EBV + CMV reactivation are
commonly involved in these patients
- HSV 6, EBV and CMV serology has been ordered by GI --> follow this up
- ID consulted - no role for ABx at this juncture
- trend WBC and monitor temperature curve
- Maintain SpO2 >90-94%
- Maintain MAP>65
- Replete electrolytes with K>4, Mg>2
- Maintain euglycemia with goal BG 140-180
- Trend H/H and transfuse if needed to keep Hb>7g/dL; keep plt>20k, unless there is concern for bleeding then keep plt>50k
- prn nebulized bronchodilators - not currently bronchospastic
- Incentive spirometer encouraged 10x per hour for at least 4 hrs a day
- DVT ppx: Start LMWH
Pulmonary service will continue to briefly follow along.
Total time spent today was 58 minutes for this encounter. Time includes reviewing laboratory test/imaging results, reviewing pertinent medical records, obtaining and reviewing medical history, performing an appropriate exam, ordering medications,
tests and procedures. Time also includes documentation of this encounter, coordinating patient care and communicating with other healthcare professionals. Total time does not include separately billed tests performed on this date of service.
--- NOTE | 2024-10-01 18:34 | PTCARENOTE ---
Patient notified this nurse that she takes flonase 2 sprays daily, Olopatadine 2 sprays bid, Zyrtec daily and Nextstellis daily. She was asking if she should be taking these meds. Dr Parra notified via TT. Med list updated.
--- NOTE | 2024-10-01 21:54 | PTCARENOTE ---
assumed care of pt from paula RN. Pt aaox3. NSR on monitor. 98% on RA. Hygiene completed. Pt ambulated to bathroom with a steady gait. Hygiene completed. Medications sent down to pharmacy and awaiting their return to administer. Pt has a
scattered pink/red rash that is flat covering her b/t hands, arms, legs and chest. Pt is now resting in bed with at bedside and call hartley in reach.
[2024-10-01] MEDS: NON-FORMULARY ITEM 1 TABLET PO (22:26)
[2024-10-01] MEDS: NON-FORMULARY ITEM 2 SPRAY NASAL (22:26)
[2024-10-02] VITALS (7 sets, daily range): BP systolic 104–121; BP diastolic 54–74
[2024-10-02] MEDS: BENADRYL 25 MG IV ×3 (06:05→18:02)
[2024-10-02] MEDS: DECADRON 8 MG IV ×3 (06:05→18:03)
[2024-10-02 06:33] LABS: INR 0.99; PT 13.4 Sec (11.4-14.6)
[2024-10-02 06:39] LABS: Hematocrit 38.1 % (37.0-47.0); Hemoglobin 13.1 g/dL (12.0-16.0); Mean Corp Hgb Conc. 34.4 g/dL (33.0-37.0); Mean Corpuscular Volume 83.9 fL (81.0-99.0); Nucleated Red Blood Cells % 0 %; Platelet Count 336 10^3/uL (130-400); Red Cell Dist. Width 13.3 % (11.5-14.5)
[2024-10-02 06:57] LABS: C-Reactive Protein < 5.00 mg/L (0.0-10.00)
[2024-10-02] MEDS: NON-FORMULARY ITEM 2 SPRAY NASAL ×3 (07:34→21:44)
[2024-10-02] MEDS: ZYRTEC 10 MG PO (07:34)
[2024-10-02] MEDS: THERAGRAN 1 TABLET PO (07:34)
[2024-10-02] MEDS: PEPCID 20 MG IV ×2 (07:34→20:04)
--- NOTE | 2024-10-02 07:37 | W.PN.PUL3 ---
Today's Communication / Plan
-
Continue steroids, antihistamine, H2 daniel number
Course of steroid difficult to determine at this time but given rapid improvement this is encouraging
recommend decision on taper timeline to immunology
We will sign off. please call with questions
Assessment
-
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
lip swelling + eye puffiness/worsening rash. Patient had been diagnosed with maxillary sinusitis in late August and had seen ENT. She was given a 3-week course of Bactrim as she had persistent sinusitis despite 5 days of Augmentin + few days of
Levaquin. About 2 weeks after starting Bactrim she developed a rash on her arms and ankles which was minor. She did arrive in [facility] and travel to [place] on 09/16 with friends for a girls trip. About 6 days after her rash initially started on 09/23,
she traveled from [facility] to [facility] and her rash markedly worsened in the sun-exposed regions except her face. Her rash became increasingly itchy, confluent, and persisted despite trying triamcinolone steroid cream + Zyrtec. She went to an urgent
care in [facility] on Wednesday (09/25), and she was treated with 60 mg of prednisone with a taper and this seemed to hold her over for the night however the next day on 09/26 the rash was spreading and she went to urgent care again in [facility]. They
recommended her to see dermatology but the patient then came back to [facility]. On 09/27 she came here to the ER and was given 10 mg Decadron, 25 mg Benadryl and Pepcid 20 mg, all IV. She felt much improved, and continue to take prednisone
taper which was prescribed by the ER. Yesterday (09/30), she started to have lip swelling and eye puffiness although it was subtle and her arms were getting more itchy where the rash was located. This morning her face became increasingly more red
with rash appearing on her hands and lip swelling worsened so she decided to come back to the hospital. In the ER she was afebrile with pulse rate 94, respiratory rate 20, BP 144/83 and saturating 100 % on room air. Labs pertinent for absolute
eosinophil count of 700, elevated LFTs with AST 367, ALT 608 and beta-hCG negative. In the ER she was given 8 mg IV Decadron, 25 mg of Benadryl and 1 L NS 0.9%. She was admitted to the IMU for closer monitoring and pulmonary services consulted for
additional management/recommendations.
Chronic conditions EPIC DIRECTOR: Left cheek basal cell carcinoma s/p Mohs (2006), left shoulder impingement syndrome, seasonal allergies, allergic urticaria, GERD, rosacea, history of hemorrhoids
Impression:
#Facial rash with suspected DRESS
#Elevated eosinophils due to suspected DRESS
#Transaminitis likely due to above (DRESS syndrome)
#Facial edema (seen in majority of cases of DRESS)
#History of maxillary sinusitis treated with Bactrim
#History of seasonal allergies + allergic urticaria
#History of rosacea
#History of GERD
Plan:
- Clinically, patient has DRESS syndrome likely due to Bactrim prescribed on 09/04/2024 given to her to treat persistent maxillary sinusitis
- Main treatment at this point is supportive care while avoiding the medication that caused this reaction, in this case Bactrim
- She has moderate severity DRESS, and agree with giving systemic corticosteroid
- She is currently on Decadron 8 mg IV q6hr, in addition to Zyrtec, Pepcid 20 mg IV q12hr and Benadryl 25 mg IV q6hr
- Unclear the benefit that Pepcid and Benadryl have as this is a T-cell mediated hypersensitivity reaction and not a histamine induced reaction; although these may help with the pruritus
- She May need a prolonged course of steroids. pt is known to allergy and immunology and this should be followed through their office ([facility])
- Continue to trend LFTs, as liver injury is the most common visceral manifestation of DRESS
- GI has been consulted - recs appreciated
- Would recommend continued follow-up with her PCP vs Allergy/Receiver Setter as she could develop autoimmune sequela
- Given that she does not have severe DRESS, she should do well with cessation of sulfonamides and slow taper of steroids; if symptoms worsen then could consider skin biopsy + IVIG vs antiviral medications as HHV-6/7+ EBV + CMV reactivation are
commonly involved in these patients
- HSV 6, EBV and CMV serology has been ordered by GI --> follow this up
- ID consulted - no role for ABx at this juncture
- trend WBC and monitor temperature curve
- DVT ppx: pt is ambulatory. mechanical proph continues
Reviewed with patient and at bedside.
We will sign off. Please call with questions
Subjective Data
-
Date of Service:
Date of Service: October 02, 2024
Subjective:
Patient is without symptoms. She denies any shortness of breath, chest pain, cough. Rashes resolved
Objective Data
Data Reviewed
Vital Signs / I&O / Oxygen:
Vital Signs
Temp Pulse Resp BP Pulse Ox
97.8 F 81 14 110/73 99
10/02/24 02:21 10/02/24 06:13 10/02/24 06:13 10/02/24 06:13 10/02/24 06:13
Intake and Output
10/01/24 10/02/24 10/03/24
06:59 06:59 06:59
Output Total 1450 / 1450
Balance -1450 / -1450
SaO2 99
Physical Exam
General: Comfortable
HEENT: Normocephalic and Anicteric
Cardiovascular: S1-S2, Regular Rhythm, Murmur (n), Rub (n) and Peripheral Edema (n)
Respiratory: Wheeze (n), Crackles (n), Rhonchi (n), Non-Labored Respirations and Stridor (n)
GI: Soft, Non Distended and Non Tender
Neurology: Awake, Alert and No Motor Deficits
Skin: Cyanosis (n), Jaundice (n) and Rash (n)
Labs/Micro/Reports
Lab Data
10/02/24 06:08
Laboratory Results
10/01/24 10/02/24
09:02 06:08
PT 13.0 13.4
INR 0.95 0.99
[2024-10-02 08:11] LABS: ALT (SGPT) 725 U/L (0-35); AST (SGOT) 270 U/L (14-36); Albumin 4.4 g/dl (3.5-5.0); Alkaline Phosphatase 112 U/L (38-126); Blood Urea Nitrogen 13 mg/dl (7-17); Calcium 9.4 mg/dl (8.4-10.2); Carbon Dioxide 21 mmol/L (22-30); Chloride 109 mmol/L (98-107); Estimated Creatinine Clearance 79 ml/min; Glucose 108 mg/dl (70-99); Magnesium 2.5 mg/dl (1.6-2.3); Potassium 4.8 mmol/L (3.5-5.1); Sodium 138 mmol/L (135-145); Total Protein 7.3 g/dl (6.3-8.2); eGFR > 60.00
--- NOTE | 2024-10-02 10:11 | W.PN.ID1 ---
Date of Service
Date of Service: October 02, 2024
Today's Communication
Observe off antibiotics.
Assessment / Plan
Drug reaction / Suspected DRESS.
Transaminitis
GERD
Hx diverticulitis
Hx rosacea
Recommendations:
At present, no evidence of infectious etiology.
Observe off antibiotics.
Trend LFTs.
- Serology ordered for CMV EBV and HHV-6.
- If LFTs remain elevated, and above serology indicates prior exposure to above viruses, can check PCR to see if virus is detected.
Follow for rash improvement.
����������������������������������������������������������
Chief Complaint
-: Other (Dress Syndrome)
Subjective / Review of Systems
Patient seen and examined. Reports feeling somewhat improved today. Notes rash is somewhat diminished.
Review of Systems: No Fever and No Chills
Vital Signs / Physical Exam
Vital Signs
Vital Signs
Temp Pulse Resp BP Pulse Ox
97.9 F 110 22 121/74 98
10/02/24 07:50 10/02/24 08:29 10/02/24 08:29 10/02/24 08:29 10/02/24 08:29
Physical Exam
Constitutional: No Acute Distress, Comfortable and Non-toxic
Eyes: Sclera Anicteric
Cardiovascular: S1/S2; Negative S3/S4
Pulmonary: Non Labored
Gastrointestinal: Soft and Non Distended
Skin: Rash (Erythematous skin rash diminished on cheeks, arms)
Neurological: Awake and Alert
Psychological: Calm
Objective Data
Lab Data
Lab Results
10/02/24 06:08
10/02/24 06:08
ESR 45 mm/hour (0-20) H 10/02/24 06:08
PT 13.4 Sec (11.4-14.6) 10/02/24 06:08
INR 0.99 10/02/24 06:08
Estimated Creat Clear 79 ml/min 10/02/24 06:08
Total Bilirubin 0.8 mg/dl (0.2-1.3) 10/02/24 06:08
AST 270 U/L (14-36) H 10/02/24 06:08
ALT 725 U/L (0-35) H* 10/02/24 06:08
Alkaline Phosphatase 112 U/L (38-126) 10/02/24 06:08
C-Reactive Protein < 5.00 mg/L (0.0-10.00) 10/02/24 06:08
Most recent labs reviewed.
--- NOTE | 2024-10-02 11:00 | PTCARENOTE ---
Assumed care of pt from hourly shift manager RN. AAOx3. NSR/ST on tele, HRs 80s-120s. SpO2 98% on room air. Scattered red rash still visibly present on pt face, neck, chest, arms and legs. Rash is improving per pt. Assessment documented. Pt resting in bed,
call hartley in reach.
--- NOTE | 2024-10-02 14:45 | W.PN.HOSP.TC ---
Today's Communication/Plan
-
Continue steroids, H1 blockers
Follow-up hepatic serology, viral panel
Assessment / Plan
Assessment / Plan
Physical Exam
General: No pallor, cyanosis, or jaundice.
HEENT: Throat clear. PERRLA Normocephalic atraumatic
NECK: Supple. No JVD Carotid Bruits
RESPIRATORY: Lungs clear to auscultation. No crackles wheezes stridor
CVS: S1, S2 normal. RRR. No murmur, rub or gallop.
ABDOMEN: Soft, non-tender. No distension. BS+/normal.
EXTREMITIES: No peripheral cyanosis or edema.
Derm: Diffuse rash involving face, maculopapular rash neck chest arms and legs
VEHICLE UPHOLSTERER: AOx3. No focal deficits.
#Suspected DRESS secondary to Bactrim, eosinophil count 700
#Acute Liver injury 2/2 DRESS AST 367 ALT 608
#Transaminitis
IMU admit for closer monitoring concern progressive symptoms despite steroids Benadryl
Vital signs otherwise stable on room air
IV Decadron 8 mg every 6h
Cont Antihistamines for now
IV Pepcid 20 mg BID
Calamine Lotion prn itching
Daily CBC differential and CMP
Abd US appreciated no acute abn's, coag wnl
GI eval
ID eval possible alternative infection, hx travel
F/u CMV EBV and HHV-6 although lower suspicion ; if lfts remain elevated will f/u further work up including PCR
#Leukocytosis
-most likely steroid induced
-monitor wbc, fever curve
DVT ppx SCD; Lovenox
GI ppx Famotidine
Full Code
Anticipated Discharge: 24 - 48 hours
Subjective/Interval History
-
Date of Service: October 02, 2024
Erythema present improvement
Objective Data
-
Labs:
Laboratory Results
10/02/24
06:08
WBC 17.2 H
Hgb 13.1
Hct 38.1
Plt Count 336 D
PT 13.4
INR 0.99
Sodium 138
Potassium 4.8
Chloride 109 H
Carbon Dioxide 21 L
BUN 13
Creatinine 0.7
Glucose 108 H
Calcium 9.4
Total Bilirubin 0.8
AST 270 H
ALT 725 H*
Alkaline Phosphatase 112
Vital Signs:
Vital Signs
Temp Pulse Resp BP Pulse Ox
98.6 F 89 18 114/71 98
10/02/24 11:25 10/02/24 14:00 10/02/24 10:00 10/02/24 11:55 10/02/24 10:00
I&O
10/01/24 10/02/24 10/03/24
06:59 06:59 06:59
Output Total 1450 / 1450 400 / 400
Balance -1450 / -1450 -400 / -400
Review of Systems
-
History Source: Patient
All other systems: Not reviewed unless documented
Data Reviewed
-
Ultrasound: Report Reviewed by me
Labs: Labs Reviewed by me
--- NOTE | 2024-10-02 14:52 | W.PN.GI.CBS2 ---
Today's Communication / Plan
-
-- daily MELD labs
Assessment / Plan
-
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
to the IMU and hospitalist suspects DRESS syndrome. GI consulted for significant hepatocellular injury with normal INR and bilirubin
10/01/2024 abdominal ultrasound normal-sized liver 16.8 cm, homogeneous normal hepatic echotexture with no lesion, normal bile ducts, gallbladder is normal
# Acute hepatocellular hepatitis/hepatocellular injury - DILI vs DRESS - ALT 700s, normal bili and normal INR.
If this is DRESS - The liver is most frequently affected and can be associated with viral reactivation especially HHV-6, [place]-Owens and cytomegalovirus
-- Bactrim drug-induced liver injury can be severe and progressed to acute liver failure and is often a hypersensitivity reaction and can occur with drug rash eosinophilia, fever
- Monitor daily MELD labs including INR
-- Bactrim induced liver injury varies greatly in severity. It can be mild with self-limited liver enzyme elevations, to acute symptomatic hepatitis to prolong cholestatic syndrome, to acute liver failure. Full recovery usually within 2 to 8 weeks.
-- hepatitis panel, EBV, CMV all pending
-- Her INR is stable, her bilirubin is normal. Some of her liver enzymes have improved. Continue to monitor
#DRESS syndrome -is a severe cutaneous adverse reaction with rash, fever, organ involvement potentially of the liver, lung and or kidney after prolonged exposure to medication. Bactrim is 1 of those medications which she was on it for roughly 3
weeks. Timing fits since it often occurs weeks after the drug.
-- Bactrim has been stopped 1 wk ago, supportive care, systemic glucocorticoids
-- Dermatology consult would be ideal; biopsy?
Subjective
Subjective
Date of Service: October 02, 2024
No significant complaints. Good mentation
Objective
Data Reviewed
Laboratory Data:
Laboratory Results
10/02/24 06:08
10/02/24 06:08
Laboratory Results
PT 13.4 Sec (11.4-14.6) 10/02/24 06:08
INR 0.99 10/02/24 06:08
Phosphorus 5.0 mg/dl (2.5-4.5) H 10/02/24 06:08
Magnesium 2.5 mg/dl (1.6-2.3) H 10/02/24 06:08
Total Bilirubin 0.8 mg/dl (0.2-1.3) 10/02/24 06:08
AST 270 U/L (14-36) H 10/02/24 06:08
ALT 725 U/L (0-35) H* 10/02/24 06:08
Alkaline Phosphatase 112 U/L (38-126) 10/02/24 06:08
Vital Signs and I&O:
Vital Signs
Temp Pulse Resp BP Pulse Ox
98.6 F 89 18 114/71 98
10/02/24 11:25 10/02/24 14:00 10/02/24 10:00 10/02/24 11:55 10/02/24 10:00
I&O
10/01/24 10/02/24 10/03/24
06:59 06:59 06:59
Output Total 1450 / 1450 400 / 400
Balance -1450 / -1450 -400 / -400
Physical Exam
Physical Exam
HEENT: Anicteric
Neuro: Non Focal
[2024-10-02] MEDS: LR 1000 IV (16:11)
[2024-10-02 18:32] LABS: Hepatitis C Antibody Negative (Negative)
[2024-10-02 19:16] LABS: Hepatitis B Surface Antigen Negative (Negative)
[2024-10-02] MEDS: NON-FORMULARY ITEM 1 TABLET PO (20:03)
[2024-10-02] MEDS: XANAX 0.25 MG PO (21:44)
--- NOTE | 2024-10-02 22:37 | PTCARENOTE ---
Patient AAOx3. Pt NSR on the monitor HR 72. Pt anxious and requesting PRN Xanax for anxiety. See MAR. SpO2 98% on room air. Lungs are clear. Scattered macular rash on face, neck, chest, arms and legs. Pt denies any itchiness or discomfort from the
rash. Rash is improving per pt. Assessment and vitas as charted see worklist. Call hartley within reach.
[2024-10-03] VITALS (10 sets, daily range): BP systolic 87–112; BP diastolic 49–75
[2024-10-03] MEDS: BENADRYL 25 MG IV ×2 (00:49→05:56)
[2024-10-03] MEDS: DECADRON 8 MG IV ×3 (00:50→13:41)
[2024-10-03 06:04] LABS: Hematocrit 38.0 % (37.0-47.0); Hemoglobin 13.2 g/dL (12.0-16.0); Mean Corp Hgb Conc. 34.7 g/dL (33.0-37.0); Mean Corpuscular Volume 84.4 fL (81.0-99.0); Nucleated Red Blood Cells % 0 %; Platelet Count 332 10^3/uL (130-400); Red Cell Dist. Width 13.6 % (11.5-14.5)
[2024-10-03 06:16] LABS: INR 0.95; PT 13.0 Sec (11.4-14.6)
[2024-10-03 06:33] LABS: ALT (SGPT) 534 U/L (0-35); AST (SGOT) 99 U/L (14-36); Albumin 4.3 g/dl (3.5-5.0); Alkaline Phosphatase 98 U/L (38-126); Blood Urea Nitrogen 15 mg/dl (7-17); Calcium 9.3 mg/dl (8.4-10.2); Carbon Dioxide 25 mmol/L (22-30); Chloride 107 mmol/L (98-107); Estimated Creatinine Clearance 79 ml/min; Glucose 121 mg/dl (70-99); Potassium 4.6 mmol/L (3.5-5.1); Sodium 139 mmol/L (135-145); Total Protein 7.2 g/dl (6.3-8.2); eGFR > 60.00
--- NOTE | 2024-10-03 08:03 | W.PN.ID1 ---
Date of Service
Date of Service: October 03, 2024
Today's Communication
Observe off antibiotics.
Assessment / Plan
Drug reaction / Suspected DRESS.
Transaminitis
GERD
Hx diverticulitis
Hx rosacea
Recommendations:
At present, no evidence of infection.
Observe off antibiotics.
Trend LFTs. Improvement noted on today's labs.
- Serology ordered for CMV EBV and HHV-6.
Follow rash improvement / resolution
����������������������������������������������������������
Chief Complaint
-: Other (DRESS Syndrome)
Subjective / Review of Systems
Patient seen and examined. Reports some feeling of anxiousness last night, possibly attributed to steroids.
Review of Systems: No Fever and No Chills
Vital Signs / Physical Exam
Vital Signs
Vital Signs
Temp Pulse Resp BP Pulse Ox
98.2 F 87 20 112/59 97
10/03/24 03:51 10/03/24 06:05 10/02/24 15:30 10/03/24 06:05 10/02/24 22:26
Physical Exam
Constitutional: No Acute Distress, Comfortable and Non-toxic
Eyes: Sclera Anicteric
Pulmonary: Non Labored
Skin: Rash (Diminished)
Neurological: Awake and Alert
Psychological: Calm
Objective Data
Lab Data
Lab Results
10/03/24 05:47
10/03/24 05:47
ESR 45 mm/hour (0-20) H 10/02/24 06:08
PT 13.0 Sec (11.4-14.6) 10/03/24 05:47
INR 0.95 10/03/24 05:47
Estimated Creat Clear 79 ml/min 10/03/24 05:47
Total Bilirubin 0.5 mg/dl (0.2-1.3) 10/03/24 05:47
AST 99 U/L (14-36) H 10/03/24 05:47
ALT 534 U/L (0-35) H* 10/03/24 05:47
Alkaline Phosphatase 98 U/L (38-126) 10/03/24 05:47
C-Reactive Protein < 5.00 mg/L (0.0-10.00) 10/02/24 06:08
Most recent labs reviewed.
[2024-10-03] MEDS: ZYRTEC 10 MG PO (08:07)
[2024-10-03] MEDS: THERAGRAN 1 TABLET PO (08:07)
[2024-10-03] MEDS: PEPCID 20 MG IV (08:07)
[2024-10-03] MEDS: NON-FORMULARY ITEM 2 SPRAY NASAL ×3 (08:08→21:51)
--- NOTE | 2024-10-03 09:33 | W.PN.GI.CBS2 ---
Today's Communication / Plan
-
monitor liver tests as outpatient
Assessment / Plan
-
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
to the IMU and hospitalist suspects DRESS syndrome. GI consulted for significant hepatocellular injury with normal INR and bilirubin
10/01/2024 abdominal ultrasound normal-sized liver 16.8 cm, homogeneous normal hepatic echotexture with no lesion, normal bile ducts, gallbladder is normal
# Acute hepatocellular hepatitis/hepatocellular injury - DILI vs DRESS - ALT 700s, normal bili and normal INR.
- numbers continue to improve (AST/ALT), INR remains normal
- needs f/u of liver numbers and INR as outpatient in 1 week but pt aware numbers can take months to resolve
- if there is a bump in numbers over next month would need to r/o drug induced autoimmune hepatitis
- avoid nsaids, acetominophen
- will schedule outpatient f/u with dr. Dias, primary gi
will sign off call with questions
Subjective
Subjective
Date of Service: October 03, 2024
Pt without pain or confusion
Objective
Data Reviewed
Laboratory Data:
Laboratory Results
10/03/24 05:47
10/03/24 05:47
Laboratory Results
PT 13.0 Sec (11.4-14.6) 10/03/24 05:47
INR 0.95 10/03/24 05:47
Phosphorus 5.0 mg/dl (2.5-4.5) H 10/02/24 06:08
Magnesium 2.5 mg/dl (1.6-2.3) H 10/02/24 06:08
Total Bilirubin 0.5 mg/dl (0.2-1.3) 10/03/24 05:47
AST 99 U/L (14-36) H 10/03/24 05:47
ALT 534 U/L (0-35) H* 10/03/24 05:47
Alkaline Phosphatase 98 U/L (38-126) 10/03/24 05:47
Vital Signs and I&O:
Vital Signs
Temp Pulse Resp BP Pulse Ox
98.3 F 87 20 112/59 97
10/03/24 07:50 10/03/24 06:05 10/02/24 15:30 10/03/24 06:05 10/02/24 22:26
I&O
10/02/24 10/03/24 10/04/24
06:59 06:59 06:59
Intake Total 480 / 480
Output Total 1450 / 1450 400 / 400
Balance -1450 / -1450 80 / 80
Physical Exam
Physical Exam
HEENT: Anicteric
Neuro: Non Focal and Other (oriented)
--- NOTE | 2024-10-03 14:56 | W.PN.HOSP.TC ---
Addendum entered and electronically signed by Alon Chappell MD 10/03/24 15:08:
Switch to 1 mg/kg per day of oral�prednisone - 60mg daily
Original Note:
Today's Communication/Plan
-
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
cont H1/H2 daniel
May need PJP ppx - obviously not bactrim - will engage with ID once ready for DC
Assessment / Plan
Assessment / Plan
Physical Exam
General: No pallor, cyanosis, or jaundice.
HEENT: Throat clear. PERRLA Normocephalic atraumatic
NECK: Supple. No JVD Carotid Bruits
RESPIRATORY: Lungs clear to auscultation. No crackles wheezes stridor
CVS: S1, S2 normal. RRR. No murmur, rub or gallop.
ABDOMEN: Soft, non-tender. No distension. BS+/normal.
EXTREMITIES: No peripheral cyanosis or edema.
Derm: Diffuse rash involving face, maculopapular rash neck chest arms and legs
HEEL BRUSHER: AOx3. No focal deficits.
#Suspected DRESS secondary to Bactrim, eosinophil count 700 - Improving
#Acute Liver injury 2/2 DRESS - Improving
#Transaminitis - improving
IMU admit for closer monitoring concern progressive symptoms despite steroids Benadryl
Vital signs otherwise stable on room air
IV Decadron 8 mg every 6h - awaiting Pred taper course for 12 weeks from Allergy
Zahira/fexofenadine or Zyrtec/cetirizine plus famotidine 20mg bid
PJP ppx as per allergy/ID
Calamine Lotion prn itching
Daily CBC differential and CMP
Abd US appreciated no acute abn's, coag wnl
GI eval
ID eval possible alternative infection, hx travel
F/u CMV EBV and HHV-6 although lower suspicion ;
#Leukocytosis
-most likely steroid induced
-monitor wbc, fever curve
DVT ppx SCD; Lovenox
GI ppx Famotidine
Full Code
Anticipated Discharge: 24 - 48 hours
Subjective/Interval History
-
Date of Service: October 03, 2024
erythema improving
Objective Data
-
Labs:
Laboratory Results
10/03/24
05:47
WBC 18.8 H
Hgb 13.2
Hct 38.0
Plt Count 332
PT 13.0
INR 0.95
Sodium 139
Potassium 4.6
Chloride 107
Carbon Dioxide 25
BUN 15
Creatinine 0.7
Glucose 121 H
Calcium 9.3
Total Bilirubin 0.5
AST 99 H
ALT 534 H*
Alkaline Phosphatase 98
Vital Signs:
Vital Signs
Temp Pulse Resp BP Pulse Ox
98.8 F 109 20 112/59 98
10/03/24 11:43 10/03/24 12:00 10/02/24 15:30 10/03/24 08:02 10/03/24 11:55
I&O
10/02/24 10/03/24 10/04/24
06:59 06:59 06:59
Intake Total 480 / 480 480 / 480
Output Total 1450 / 1450 400 / 400
Balance -1450 / -1450 80 / 80 480 / 480
Review of Systems
-
History Source: Patient
All other systems: Not reviewed unless documented
Data Reviewed
-
Ultrasound: Report Reviewed by me
Labs: Labs Reviewed by me
[2024-10-03] MEDS: BENADRYL 50 MG PO (16:00)
[2024-10-03] MEDS: DELTASONE 60 MG PO (16:00)
[2024-10-03 19:38] LABS: EBV-VCA IgM Antibodies <10.0 U/mL (0.0-43.9)
[2024-10-03] MEDS: NON-FORMULARY ITEM 1 TABLET PO (20:00)
[2024-10-03] MEDS: PEPCID 20 MG PO (20:01)
[2024-10-03] MEDS: XANAX 0.25 MG PO (21:51)
[2024-10-04 02:49] VITALS: BP 99/52
--- NOTE | 2024-10-04 03:03 | PTCARENOTE ---
Assumed care for patient overnight, pt AAOx3. Pt NSR on the monitor. Pt anxious and requesting PRN Xanax for anxiety. See MAR. SpO2 98% on room air. Lungs are clear. Scattered macular rash on face, neck, chest, arms and legs. Pt denies any itchiness
or discomfort from the rash. Rash is improving per pt. Assessment and vitas as charted see worklist. Call hartley within reach.
[2024-10-04 06:40] VITALS: BP 117/64
[2024-10-04 06:54] LABS: Hematocrit 38.1 % (37.0-47.0); Hemoglobin 12.8 g/dL (12.0-16.0); Mean Corp Hgb Conc. 33.6 g/dL (33.0-37.0); Mean Corpuscular Volume 85.2 fL (81.0-99.0); Nucleated Red Blood Cells % 0 %; Platelet Count 338 10^3/uL (130-400); Red Cell Dist. Width 13.5 % (11.5-14.5)
[2024-10-04 06:57] LABS: INR 0.94; PT 12.9 Sec (11.4-14.6)
[2024-10-04 07:17] LABS: ALT (SGPT) 368 U/L (0-35); AST (SGOT) 45 U/L (14-36); Albumin 4.0 g/dl (3.5-5.0); Alkaline Phosphatase 87 U/L (38-126); Blood Urea Nitrogen 15 mg/dl (7-17); Calcium 9.6 mg/dl (8.4-10.2); Carbon Dioxide 26 mmol/L (22-30); Chloride 107 mmol/L (98-107); Estimated Creatinine Clearance 79 ml/min; Glucose 94 mg/dl (70-99); Potassium 4.7 mmol/L (3.5-5.1); Sodium 138 mmol/L (135-145); Total Protein 6.9 g/dl (6.3-8.2); eGFR > 60.00
[2024-10-04 08:45] VITALS: BP 134/71
--- NOTE | 2024-10-04 08:46 | W.PN.ID1 ---
Date of Service
Date of Service: October 04, 2024
Today's Communication
Observe off antibiotics for today.
Assessment / Plan
Drug reaction / Suspected DRESS.
Transaminitis
GERD
Hx diverticulitis
Hx rosacea
Recommendations:
At present, no evidence of infection.
Observe off antibiotics.
Trend LFTs. Improvement noted on today's labs.
- Serology negative for CMV / EBV. HHV-6 serology remains pending.
Follow rash improvement / resolution.
Discussed with patient regarding necessity of PJP prophylaxis while on high-dose steroids. Patient may benefit from PJP prophylaxis if she remains on >20mg prednisone for >1 month.
She will further think about whether she would like to go on them, and discussed with .
����������������������������������������������������������
Chief Complaint
-: Other (DRESS Syndrome)
Subjective / Review of Systems
Patient seen and examined. Overall feels well.
Review of Systems: No Fever
Vital Signs / Physical Exam
Vital Signs
Vital Signs
Temp Pulse Resp BP Pulse Ox
98.2 F 69 20 99/52 98
10/04/24 07:21 10/04/24 04:00 10/02/24 15:30 10/04/24 02:49 10/04/24 03:00
Physical Exam
Constitutional: No Acute Distress, Comfortable and Non-toxic
Eyes: Sclera Anicteric
Pulmonary: Non Labored
Skin: Rash (Diminished)
Neurological: Awake and Alert
Psychological: Calm
Objective Data
Lab Data
Lab Results
10/04/24 06:20
10/04/24 06:19
ESR 45 mm/hour (0-20) H 10/02/24 06:08
PT 12.9 Sec (11.4-14.6) 10/04/24 06:19
INR 0.94 10/04/24 06:19
Estimated Creat Clear 79 ml/min 10/04/24 06:19
Total Bilirubin 0.3 mg/dl (0.2-1.3) 10/04/24 06:19
AST 45 U/L (14-36) H 10/04/24 06:19
ALT 368 U/L (0-35) H 10/04/24 06:19
Alkaline Phosphatase 87 U/L (38-126) 10/04/24 06:19
C-Reactive Protein < 5.00 mg/L (0.0-10.00) 10/02/24 06:08
Most recent labs reviewed.
Care Review
Total Time Spent with Patient (in minutes): 35
[2024-10-04] MEDS: NON-FORMULARY ITEM 2 SPRAY NASAL ×2 (08:47→20:22)
[2024-10-04] MEDS: DELTASONE 60 MG PO (08:50)
[2024-10-04] MEDS: PEPCID 20 MG PO ×2 (08:50→20:22)
[2024-10-04] MEDS: THERAGRAN 1 TABLET PO (08:50)
[2024-10-04] MEDS: ZYRTEC 10 MG PO (08:51)
[2024-10-04] MEDS: NON-FORMULARY ITEM NASAL (08:55)
[2024-10-04 08:58] VITALS: BP 123/58
--- NOTE | 2024-10-04 09:25 | PTCARENOTE ---
Pt tachycardic and SOTO when OOB. Recovered once at rest. vital signs stable at this time. Pt resting comfortably
--- NOTE | 2024-10-04 13:37 | W.PN.HOSP.TC ---
Today's Communication/Plan
-
switch to PO pred today and monitor
anticipate DC with plan to follow up with Dermatology outpt
Assessment / Plan
Assessment / Plan
Physical Exam
General: No pallor, cyanosis, or jaundice.
HEENT: Throat clear. PERRLA Normocephalic atraumatic
NECK: Supple. No JVD Carotid Bruits
RESPIRATORY: Lungs clear to auscultation. No crackles wheezes stridor
CVS: S1, S2 normal. RRR. No murmur, rub or gallop.
ABDOMEN: Soft, non-tender. No distension. BS+/normal.
EXTREMITIES: No peripheral cyanosis or edema.
Derm: Diffuse rash involving face, maculopapular rash neck chest arms and legs
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 No focal deficits.
#Suspected DRESS secondary to Bactrim, eosinophil count 700 - Improving
#Acute Liver injury 2/2 DRESS - Improving
#Transaminitis - improving
Vital signs otherwise stable on room air
IV Decadron 8 mg every 6h - changed to Prednisone 60mg (1mg/kg/day) today, and anticipate Pred taper course for 12 weeks from dermatology
Zahira/fexofenadine or Zyrtec/cetirizine plus famotidine 20mg bid
PJP ppx as per allergy/ID - anticipate Atovoquone
Calamine Lotion prn itching
Daily CBC differential and CMP
Abd US appreciated no acute abn's, coag wnl
GI eval
ID eval possible alternative infection, hx travel
F/u CMV, EBV neg; pending HHV-6;
#Leukocytosis
-most likely steroid induced
-monitor wbc, fever curve
DVT ppx SCD; Lovenox
GI ppx Famotidine
Full Code
Anticipated Discharge: Within 24 hours
Subjective/Interval History
-
Date of Service: October 04, 2024
feels better, symptoms, rash diminished
Objective Data
-
Labs:
Laboratory Results
10/04/24 10/04/24
06:19 06:20
WBC 18.1 H
Hgb 12.8
Hct 38.1
Plt Count 338
PT 12.9
INR 0.94
Sodium 138
Potassium 4.7
Chloride 107
Carbon Dioxide 26
BUN 15
Creatinine 0.7
Glucose 94
Calcium 9.6
Total Bilirubin 0.3
AST 45 H
ALT 368 H
Alkaline Phosphatase 87
Vital Signs:
Vital Signs
Temp Pulse Resp BP Pulse Ox
98.3 F 86 20 123/58 97
10/04/24 10:35 10/04/24 12:00 10/02/24 15:30 10/04/24 08:58 10/04/24 12:48
I&O
10/03/24 10/04/24 10/05/24
06:59 06:59 06:59
Intake Total 480 / 480 960 / 960
Output Total 400 / 400
Balance 80 / 80 960 / 960
Review of Systems
-
History Source: Patient
All other systems: Not reviewed unless documented
Data Reviewed
-
Ultrasound: Report Reviewed by me
Labs: Labs Reviewed by me
[2024-10-04 17:57] VITALS: BP 116/81
[2024-10-04] MEDS: NON-FORMULARY ITEM 1 TABLET PO (20:20)
--- NOTE | 2024-10-04 21:17 | PTCARENOTE ---
assumed care of pt from paula RN. Pt aaox3. NSR on monitor. 98% on RA. Hygiene completed. Scattered pink rash on face, neck, chest, arms and legs. Denies pain or itching. Rash has improved per pt. Pt is now resting in bed with at bedside
and call hartley in reach.
[2024-10-04 22:38] VITALS: BP 102/57
[2024-10-05 05:15] LABS: Hematocrit 35.7 % (37.0-47.0); Hemoglobin 12.4 g/dL (12.0-16.0); Mean Corp Hgb Conc. 34.7 g/dL (33.0-37.0); Mean Corpuscular Volume 84.8 fL (81.0-99.0); Nucleated Red Blood Cells % 0 %; Platelet Count 280 10^3/uL (130-400); Red Cell Dist. Width 13.3 % (11.5-14.5)
[2024-10-05 05:34] LABS: INR 0.94; PT 13.1 Sec (11.4-14.6)
[2024-10-05 05:47] LABS: ALT (SGPT) 243 U/L (0-35); AST (SGOT) 27 U/L (14-36); Albumin 3.6 g/dl (3.5-5.0); Alkaline Phosphatase 73 U/L (38-126); Blood Urea Nitrogen 17 mg/dl (7-17); Calcium 9.0 mg/dl (8.4-10.2); Carbon Dioxide 26 mmol/L (22-30); Chloride 106 mmol/L (98-107); Estimated Creatinine Clearance 79 ml/min; Glucose 80 mg/dl (70-99); Potassium 4.2 mmol/L (3.5-5.1); Sodium 136 mmol/L (135-145); Total Protein 6.2 g/dl (6.3-8.2); eGFR > 60.00
[2024-10-05 08:17] VITALS: BP 120/59
[2024-10-05] MEDS: DELTASONE 60 MG PO (08:18)
[2024-10-05] MEDS: PEPCID 20 MG PO (08:19)
[2024-10-05] MEDS: THERAGRAN 1 TABLET PO (08:20)
[2024-10-05] MEDS: NON-FORMULARY ITEM 2 SPRAY NASAL ×2 (08:20)
[2024-10-05] MEDS: ZYRTEC 10 MG PO (08:20)
--- NOTE | 2024-10-05 09:42 | W.PN.ID1 ---
Date of Service
Date of Service: October 05, 2024
Today's Communication
See below�
Assessment / Plan
Drug reaction / Suspected DRESS.
Transaminitis
GERD
Hx diverticulitis
Hx rosacea
Recommendations:
At present, no evidence of infection.
Observe off antibiotics.
Trend LFTs. Improvement noted on today's labs.
- Serology negative for CMV / EBV. HHV-6 serology remains pending.
Follow rash improvement / resolution.
Patient will be on a slow taper of steroids. Given that she will be on >>20mg prednisone, would proceed with PJP prophylaxis with Mepron.
-> At discharge, send Rx for Mepron 1500 mg p.o. daily x 30 days with 2 refills. This should carry her out until she is off of steroids.
����������������������������������������������������������
Chief Complaint
-: Other (DRESS Syndrome)
Subjective / Review of Systems
Patient seen today. Notes some anxiety attributed to steroid effect.
Review of Systems: No Fever and No Chills
Vital Signs / Physical Exam
Vital Signs
Vital Signs
Temp Pulse Resp BP Pulse Ox
98.1 F 91 20 120/59 99
10/04/24 22:44 10/05/24 08:17 10/02/24 15:30 10/05/24 08:17 10/05/24 08:22
Physical Exam
Constitutional: No Acute Distress, Comfortable and Non-toxic
Neurological: Awake and Alert
Psychological: Calm
Objective Data
Lab Data
Lab Results
10/05/24 05:07
10/05/24 05:07
ESR 45 mm/hour (0-20) H 10/02/24 06:08
PT 13.1 Sec (11.4-14.6) 10/05/24 05:07
INR 0.94 10/05/24 05:07
Estimated Creat Clear 79 ml/min 10/05/24 05:07
Total Bilirubin 0.3 mg/dl (0.2-1.3) 10/05/24 05:07
AST 27 U/L (14-36) 10/05/24 05:07
ALT 243 U/L (0-35) H 10/05/24 05:07
Alkaline Phosphatase 73 U/L (38-126) 10/05/24 05:07
C-Reactive Protein < 5.00 mg/L (0.0-10.00) 10/02/24 06:08
Most recent labs reviewed.
[2024-10-05 11:02] VITALS: BP 112/63
--- NOTE | 2024-10-05 11:49 | CM ---
Patient with Dx drug reaction / Suspected DRESS. Per nurse; A/O, ambulating in room.
Met with patient who was preparing for d/c.
The patient says she feels ready to go home today.
Her will provide transport home.
No CM d/c needs identified.
Plan home today.
--- NOTE | 2024-10-05 12:16 | PTCARENOTE ---
Patient to be d/c to home today. ST on monitor. HR 90-110. Patient anxious at times. Echo completed at bedside.
--- NOTE | 2024-10-05 12:45 | W.PN.HOSP.TC ---
Addendum entered and electronically signed by Alon Chappell MD 10/06/24 16:25:
[id number]
Original Note:
Today's Communication/Plan
-
Continue steroids (60mg prednisone) until LFT's normalized; Dermatology will guide through tapering dose
Mepron 1500 mg p.o. daily x 30 days with 2 refills for PJP ppx
Zyrtec Daily
Famotidine 20mg BID
Calamine Lotion prn itching
F/u CBC and CMP on Wednesday10/09/[address] be sent to Dr. Ruth Loredo (Dermatology)
F/u CMV, EBV neg; pending HHV-6;
INR in 1 week with PCP
F/u Dermatology on Wednesday10/10/24, GI outpatient, PCP within 1 week
Assessment / Plan
Assessment / Plan
Physical Exam
General: No pallor, cyanosis, or jaundice.
HEENT: Throat clear. PERRLA Normocephalic atraumatic
NECK: Supple. No JVD Carotid Bruits
RESPIRATORY: Lungs clear to auscultation. No crackles wheezes stridor
CVS: S1, S2 normal. RRR. No murmur, rub or gallop.
ABDOMEN: Soft, non-tender. No distension. BS+/normal.
EXTREMITIES: No peripheral cyanosis or edema.
Derm: Diffuse rash involving face, maculopapular rash neck chest arms and legs
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 No focal deficits.
#Suspected DRESS secondary to Bactrim, eosinophil count 700 - Improving
#Acute Liver injury 2/2 DRESS - Improving
#Transaminitis - improving
Vital signs otherwise stable on room air
Tachycardia - ECHO performed with no acute findings
IV Decadron 8 mg every 6h - changed to Prednisone 60mg and tolerated well
As per Dermatology: Continue steroids (60mg prednisone) until LFT's normalized; Dermatology will guide through tapering dose
Mepron 1500 mg p.o. daily x 30 days with 2 refills for PJP ppx
Zyrtec Daily
Famotidine 20mg BID
Calamine Lotion prn itching
F/u CBC and CMP on Wednesday10/09/24 to be sent to Dr. Ruth Loredo (Dermatology)
Abd US appreciated no acute abn's, coag wnl
F/u CMV, EBV neg; pending HHV-6;
INR in 1 week with PCP
F/u Dermatology on Wednesday10/10/24, GI outpatient, PCP within 1 week
#Leukocytosis, resolving
-most likely steroid induced
-monitor wbc, fever curve
DVT ppx SCD; Lovenox
GI ppx Famotidine
Full Code
More than 30 minutes spent in discharge including
Final examination of the patient
Summarizing hospital stay
Instructions for continuing care to all relevant caregivers
Preparation of discharge records, prescriptions, and referral forms
Total time spent (in minutes): 40
Anticipated Discharge: Today
Subjective/Interval History
-
Date of Service: October 05, 2024
erythema improves, tachycardia still present but improved
Objective Data
-
Labs:
Laboratory Results
10/05/24
05:07
WBC 13.2 H
Hgb 12.4
Hct 35.7 L
Plt Count 280
PT 13.1
INR 0.94
Sodium 136
Potassium 4.2
Chloride 106
Carbon Dioxide 26
BUN 17
Creatinine 0.7
Glucose 80
Calcium 9.0
Total Bilirubin 0.3
AST 27
ALT 243 H
Alkaline Phosphatase 73
Vital Signs:
Vital Signs
Temp Pulse Resp BP Pulse Ox
98.1 F 100 20 112/63 99
10/04/24 22:44 10/05/24 12:00 10/02/24 15:30 10/05/24 11:02 10/05/24 08:22
I&O
10/04/24 10/05/24 10/06/24
06:59 06:59 06:59
Intake Total 960 / 960 480 / 480
Balance 960 / 960 480 / 480
Review of Systems
-
History Source: Patient
All other systems: Not reviewed unless documented
Data Reviewed
-
Ultrasound: Report Reviewed by me
Labs: Labs Reviewed by me
--- NOTE | 2024-10-05 12:53 | W.DS.TRANS ---
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
-
Discharge Instructions:
Discharge Diagnosis/Procedures #Suspected DRESS secondary to Bactrim,
eosinophil count 700 - Improving
#Acute Liver injury 2/2 DRESS - Improving
#Transaminitis - improving
Blood Work CBC and CMP on 10/09/24 - Needs to be sent to
Ruth Loredo; INR can be followed up by PCP in 1
week
Instructions:
Stand-Alone Forms:
Changes to Home Medications: Yes
Discharge Medications:
DC Medications w/original date entered in [employer]
Lactobac no.2-Bifidobac no.1-S. thermo 112.5 billion cell capsule (Visbiome) 1 cap PO DAILY Gastrointestinal Issue 10/01/24
diphenhydramine HCl 25 mg capsule (Benadryl) 25 mg PO DAILYPRN PRN allergies 10/01/24
drospirenone 3 mg-estetrol 14.2 mg (28) tablet (Nextstellis) 0 tab PO .COMPLEX Hormonal Agent 10/01/24
fluticasone propionate 50 mcg/actuation nasal spray,suspension 2 spray intranasal DAILY Congestion 10/01/24
guar gum 1 packet PO TID Constipation 10/01/24
olopatadine 0.6 % nasal spray 2 spray intranasal BID Congestion 10/01/24
therapeutic multivitamin 1 tab PO DAILY Supplement 10/01/24
atovaquone 750 mg/5 mL oral suspension (Mepron) 1,500 mg (10 mL) PO DAILY 30 days #210 mL 10/05/24
calamine 8 %-zinc oxide 8 % lotion 1 applic topical TIDPRN PRN itching #177 mL 10/05/24
cetirizine 10 mg tablet (Zyrtec) 10 mg PO DAILY Allergies #30 tabs 10/05/24
famotidine 20 mg tablet 20 mg PO BID 30 days #60 tabs 10/05/24
prednisone 20 mg tablet 60 mg (3 x 20 mg) PO DAILY 28 days #84 tabs 10/05/24
Home Medication Changes
atovaquone 750 mg/5 mL oral suspension (Mepron) 1,500 mg (10 mL) PO DAILY 30 days #210 mL 10/05/24
calamine 8 %-zinc oxide 8 % lotion 1 applic topical TIDPRN PRN itching #177 mL 10/05/24
cetirizine 10 mg tablet (Zyrtec) 10 mg PO DAILY Allergies #30 tabs 10/05/24
famotidine 20 mg tablet 20 mg PO BID 30 days #60 tabs 10/05/24
prednisone 20 mg tablet 60 mg (3 x 20 mg) PO DAILY 28 days #84 tabs 10/05/24
Pending Results: No
[2024-10-08 21:36] LABS: Herpes Virus 6 (HHV-6) Ab, IgG 1:160
== END 2024-10-05 13:47 | disposition home or self-care (01) | DRG 816 ==
LOC: IMU 11:36
PROVIDERS: Physician Assistant; ADMITTING PHYSICIAN Internal Medicine; ATTENDING PHYSICIAN Internal Medicine; CONSULT PHYSICIAN Internal Medicine; CONSULT PHYSICIAN Internal Medicine Critical Care Medicine; CONSULT PHYSICIAN Internal Medicine Infectious Disease; EMERGENCY PHYSICIAN Emergency Medicine; FAMILY PHYSICIAN Internal Medicine
DX: D72.12 Drug rash with eosinophilia and systemic symptoms syndrome (principal); T36.8X5A Adverse effect of other systemic antibiotics, initial encounter; T38.0X5A Adverse effect of glucocorticoids and synthetic analogues, initial encounter; K21.9 Gastro-esophageal reflux disease without esophagitis; J30.2 Other seasonal allergic rhinitis; Z88.3 Allergy status to other anti-infective agents; Z88.1 Allergy status to other antibiotic agents; Z98.891 History of uterine scar from previous surgery; Z85.828 Personal history of other malignant neoplasm of skin; J32.0 Chronic maxillary sinusitis; L71.9 Rosacea, unspecified; Z82.0 Family history of epilepsy and other diseases of the nervous system; K71.9 Toxic liver disease, unspecified
CPT/HCPCS: 76700; 80053; 83735; 84100; 84703; 85025; 85610; 85652; 86140; 86645; 86665; 86704; 86705; 86709; 86790; 86803; 87340; 93306; 96361; 96374; 96375; 99285

== ENCOUNTER → 2024-10-16 08:38 | Outpatient (REF) | payer BC, SELFPAY | LOC: HWRAD 08:38 | PROVIDERS: ATTENDING PHYSICIAN Otolaryngology; FAMILY PHYSICIAN Internal Medicine | DX: J32.0 Chronic maxillary sinusitis (principal) | CPT/HCPCS: 70486 ==